=== PATIENT | female | born 1955 | race Caucasian/White ===

== ENCOUNTER → 2017-05-17 | Outpatient (CLI) | payer BC ==
[~2017-05-17] MED LIST: ATEN-173 PO; CETITAB27 PO; NXM/40 PO; SIMV40TA2 PO
== END | disposition home or self-care (01) ==
LOC: C.LABSPEC 10:31
PROVIDERS: ATTEND Nurse Practitioner Family
DX: N39.41 Urge incontinence (principal); R39.9 Unspecified symptoms and signs involving the genitourinary system

== ENCOUNTER → 2017-07-10 | Outpatient (CLI) | payer BC ==
--- NOTE | 2017-07-11 13:40 | MAMMOGRAPHY REPORT ---
BILATERAL DIGITAL SCREENING MAMMOGRAM TOMOSYNTHESIS WITH CAD: 07/10/2017 CLINICAL HISTORY: Routine screening. TECHNIQUE: Breast tomosynthesis in addition to standard 2D mammography was performed. Current study was also evaluated with a Computer Aided Detection (CAD) system. COMPARISON: Comparison is made to exams dated: 05/18/2016 mammogram, 05/06/2015 mammogram, 03/02/2014 laura mogram, 02/25/2014 mammogram, 02/19/2013 mammogram, and 02/16/2012 mammogram - [facility]. BREAST COMPOSITION: There are scattered areas of fibroglandular density in both breasts. FINDINGS: There is a 5 mm focal asymmetry in the 6:00 posterior right breast for which additional sp ot compression tomosynthesis views and possible ultrasound are recommended. No other suspicious mass, architectural distortion or cluster of microcalcifications is seen bilatera lly. IMPRESSION: ACR BI-RADS CATEGORY 0: INCOMPLETE EVALUATION: NEED ADDITIONAL IMAGING EVALUATION The 5 mm focal asymmetry in the 6:00 right breast needs additional evaluation. The patient will be called to schedule an appointment. Approximately 10% of breast cancers are not detected with mammography. A negative mammographic report should not delay biopsy if a clinically suggestive mass is present. Gretta Kumar M.D. ay/:07/10/2017 17:20:06 Auto Painter Helper: Karlene CISNEROS(Gilles)(M), [facility] letter sent: Addl Imaging 0 BI-RADS Code: ACR BI-RADS Category 0: Incomplete Evaluation: Need Additional Imaging Evaluation
== END | disposition home or self-care (01) ==
LOC: C.MAMM 15:20
PROVIDERS: ATTEND Family Medicine
DX: Z12.31 Encounter for screening mammogram for malignant neoplasm of breast (principal); N64.89 Other specified disorders of breast

== ENCOUNTER → 2017-07-20 | Outpatient (CLI) | payer BC ==
--- NOTE | 2017-07-20 13:43 | MAMMOGRAPHY REPORT ---
UNILATERAL RIGHT DIGITAL DIAGNOSTIC MAMMOGRAM TOMOSYNTHESIS AND TARGETED RIGHT ULTRASOUND: 07/20/2017 CLINICAL HISTORY: Callback from screening mammogram for right breast asymmetry. TECHNIQUE: Breast tomosynthesis in addition to standard 2D mammography was performed. Spot compress ion right CC and MLO 2-D and tomosynthesis images were obtained. COMPARISON: Comparison is made to exams dated: 07/10/2017 mammogram, 05/18/2016 mammogram, 05/06/2015 m ammogram, 03/02/2014 ultrasound, 03/02/2014 mammogram, and 02/19/2013 mammogram - [facility]ter. BREAST COMPOSITION: There are scattered areas of fibroglandular density in the right breast. FINDINGS: The previously described focal asymmetry in the right central breast effaces to a baseline appearance on the additional spot compression views, and appears similar to prior exams including the 2013 exam as well as the 2010 exam. No discrete mass or architectural distortion is noted in this r egion on the additional spot compression views. Targeted ultrasound was performed of the right central breast in the region of the mammographic asymm etry. No suspicious masses or other suspicious sonographic abnormalities are evident. There is mild benign duct ectasia as well as an incidental oval anechoic benign simple cyst measuring 3 x 3 mm. IMPRESSION: ACR BI-RADS CATEGORY 2: BENIGN, TARGETED ULTRASOUND ACR BI-RADS CATEGORY 2: BENIGN The right breast asymmetry effaces to a baseline appearance on the additional views, without correspo nding suspicious sonographic abnormality evident. Findings are benign given long-term stability and felt to represent normal fibroglandular tissue. There is no mammographic or targeted sonographic delonte dence of malignancy. A 1 year screening mammogram is recommended. The patient has been verbally notified of the results. Approximately 10% of breast cancers are not detected with mammography. A negative mammographic report should not delay biopsy if a clinically suggestive mass is present. Linsey Perez M.D. /:07/20/2017 09:00:35 Stull Hewer: Smitha Barclay RT(R)(M), [facility] letter sent: Normal 1/2 BI-RADS Code: ACR BI-RADS Category 2: Benign Ultrasound BI-RADS: ACR BI-RADS Category 2: Benign
== END | disposition home or self-care (01) ==
LOC: C.MAMM 08:35
PROVIDERS: ATTEND Family Medicine
DX: N64.89 Other specified disorders of breast (principal)

== ENCOUNTER → 2018-04-30 | Outpatient (CLI) | payer BC, OTHER ==
[~2018-04-30] MED LIST changes: +AMLO10TA3 PO; +LOSA1TAB38 PO; +METF-384 PO; +MONT1TAB3 PO; +PARO30TA PO; +PARO40TA3 PO; +RANI150T85 PO
--- NOTE | 2018-04-30 14:08 | DIAGNOSTIC IMAGING REPORT ---
RIGHT KNEE 4 VIEWS INCLUDING BILATERAL STANDING AP VIEWS CLINICAL HISTORY: RIGHT KNEE PAIN COMPARISON: None DISCUSSION: AP standing views reveal mild bilateral medial joint compartment narrowing. Submental views the right knee reveal no acute fractures. There are mild osteoarthritic changes. There are no erosive or destructive changes. IMPRESSION: 1. Mild osteoarthritic change 2. No acute fractures 3. No erosive or destructive changes Electronically signed by: John Chaparro M.D. 04/30/2018 2:06 PM Dictated Date/Time: 04/30/2018 2:05 PM
== END | disposition home or self-care (01) ==
LOC: C.RDSM 13:39
PROVIDERS: ATTEND Family Medicine
DX: M25.561 Pain in right knee (principal)

== ENCOUNTER 2018-05-05 12:15 | Emergency (ER) | payer OTHER ==
[~2018-05-05] VITALS: Ht 162.6 cm; Wt 90.5 kg
[~2018-05-05 12:15] MED LIST changes: -AMLO10TA3 PO; -LOSA1TAB38 PO; -METF-384 PO; -MONT1TAB3 PO; -PARO30TA PO; -PARO40TA3 PO; -RANI150T85 PO
[2018-05-05 12:17] VITALS: TEMP 36.6; Ht 162.6 cm; Wt 90.5 kg
[2018-05-05] MEDS ORDERED: LOSA1TAB38 PO (12:35)
[2018-05-05] MEDS ORDERED: METF-384 PO (12:35)
[2018-05-05] MEDS ORDERED: AMLO10TA3 PO (12:35)
[2018-05-05] MEDS ORDERED: PARO40TA3 PO (12:36)
[2018-05-05] MEDS ORDERED: RANI150T85 PO (12:36)
[2018-05-05] MEDS ORDERED: MONT1TAB3 PO (12:36)
[2018-05-05] MEDS ORDERED: PARO30TA PO (12:36)
--- NOTE | 2018-05-05 13:41 | EMERGENCY ROOM VISIT NOTE ---
History First contact with patient: 13:03 Chief Complaint: EYE ASSESSMENT Stated Complaint: EYE PROBLEMS - FLOATERS AND FLASHES OF LIGHT History of Present Illness The patient is a 62 year old female who presents to the Emergency Room with complaints of floaters in her vision which began yesterday. The patient states that she woke up yesterday morning with a floater across the vision of her left eye. She states that it appears like a squiggly, amoeba-like shape. She reports that the floater moves across her vision, especially with movements of her eyes. She does note she has some flashes in the peripheral vision of her left eye this morning, but does not have these anymore. Her overall vision is not affected, but she does state that at times the fluid moves across her vision and makes it difficult for her to see. She reports that she has cataracts bilaterally and sees Dr. Hassan primarily. She denies any history of similar symptoms. She denies any recent head trauma. She denies any pain in the eye or headache. Review of Systems A complete 10 point review of systems was reviewed with the patient with pertinent positives and negatives as per history of present illness. All else were negative. Past Medical/Surgical History Medical Problems: (1) Diabetes mellitus, type II (2) Hypertension Social History Smoking Status: Former Smoker Housing Status: lives with family Current/Historical Medications Scheduled Amlodipine (Norvasc), 10 MG PO DAILY Losartan Potassium (Cozaar), 100 MG PO DAILY Metformin Hcl (Glucophage), 1,500 MG PO BID Montelukast Sodium (Singulair), 10 MG PO DAILY Paroxetine Hcl (Paxil), 30 MG PO DAILY Paroxetine Hcl (Paxil), 40 MG PO DAILY Ranitidine (Zantac), 150 MG PO DAILY Physical Exam Vital Signs Date Time Temp Pulse Resp B/P (MAP) Pulse Ox O2 Delivery O2 Flow Rate FiO2 05/05/18 12:17 36.6 71 17 162/73 98 Room Air Right Eye Acuity: 20/50 Left Eye Acuity: 20/40 Physical Exam VITALS: Vitals are noted on the nurse's note and reviewed by myself. Vital signs stable. GENERAL: This is a 62-year-old female, in no acute distress, nondiaphoretic, well-developed well-nourished. SKIN: The skin was without rashes. HEAD: Normocephalic atraumatic. EYES: Visual acuity as above. Pupils equal round and reactive to light and accommodation. Extraocular movements intact. Peripheral vision intact and equal bilaterally. Funduscopic exam reveals no papilledema or hemorrhage. Slit -lamp examination reveals no foreign bodies. Anterior chamber normal. NEURO: Patient was alert and oriented to person place and time. Medical Decision & Procedures Medical Decision Differential diagnosis includes retinal detachment, vitreous detachment, vitreous hemorrhage, retinal tear, among others. The patient was evaluated as above. Eye exam is within normal limits. I did speak with Dr. Johnson, the on-call director broadcast who did not feel this represented a retinal detachment and feels the patient can follow-up for a dilated exam in the morning with her own director broadcast. She was advised to contact Dr. Hassan first thing in the morning to schedule an appointment. She was advised to return with worsening of her symptoms. She verbalized understanding of my assessment and treatment plan and was discharged home in good condition. Medication Reconcilliation Current Medication List: was personally reviewed by me Blood Pressure Screening Patient's blood pressure: Elevated blood pressure Blood pressure disposition: Referred to PCP Impression Primary Impression: Floaters in visual field Departure Information Dispostion Home / Self-Care Condition GOOD Referrals Abby Winslow M.D. (PCP) Ranjith Hassan M.D. Patient Instructions My [facility] Additional Instructions Contact Dr. Hassan in the morning to schedule follow-up tomorrow. Return to the emergency department if you develop a "rainstorm" of floaters, "lightning storm" of flashes, changes in the periphery of your vision or any other concerning symptoms. Do not make any significant sudden head movements until you follow-up with ophthalmology. Problem Qualifiers Primary Impression: Floaters in visual field Laterality: left Qualified Codes: H43.392 - Other vitreous opacities, left eye
[2018-05-05 13:51] VITALS: BP 146/73; PULSE 58; O2SAT 94
== END 2018-05-05 13:55 | disposition home or self-care (01) ==
LOC: C.EDB 12:16 → C.EDD 13:55
DX: H43.392 Other vitreous opacities, left eye (principal); H26.9 Unspecified cataract; E11.9 Type 2 diabetes mellitus without complications; I10 Essential (primary) hypertension; Z87.891 Personal history of nicotine dependence; Z79.899 Other long term (current) drug therapy; Z79.84 Long term (current) use of oral hypoglycemic drugs

== ENCOUNTER 2018-10-14 07:45 | Observation (INO) ==
--- NOTE | 2018-09-17 10:00 | Anesthesiology Consultation ---
Date of Service September 17, 2018 Assessment & Plan (1) Encounter for pre-operative examination: Plan: - Check BSG AM DOS Chart Review Chart Review: Acceptable Risk for Surgery and Patient seen in Pre Admission Testing Teaching & Discussion Pre-Anesthesia Teaching/Discussion Notes: Instructed NPO after midnight before surgery,except medications with 15 cc of water. Medication instructions provided according to the PAT guidelines. History Surgery Operation Date: 10/14/18 07:00 Proposed Procedures p Right Breast Partial Mastectomy with Needle Localization and with Right [place] Lymph Node Biopsy (Injection Only) - Roly Correa MD, FACS Height/Weight Height: 5 ft 4 in Weight: 85.7 kg Allergies Allergy/AdvReac Type Severity Reaction Status Date / Time QUIBRON Allergy Unknown heart Uncoded 09/10/18 08:42 racing, tongue fuzzy, couldn't speak Medications Home Medications Medication Instructions Recorded Confirmed Last Taken albuterol sulfate 2 puff INHALATION Q6H PRN 09/10/18 09/10/18 Unknown amlodipine 10 mg PO QAM 09/10/18 09/10/18 Unknown atorvastatin [Lipitor] 20 mg PO PM 09/10/18 09/10/18 Unknown cholecalciferol (vitamin D3) 2,000 unit PO QAM 09/10/18 09/10/18 Unknown [Vitamin D3] coenzyme Q10 [CoQ-10] 100 mg PO QPM 09/10/18 09/10/18 Unknown hydrochlorothiazide 12.5 mg PO QAM 09/10/18 09/10/18 Unknown losartan 100 mg PO QAM 09/10/18 09/10/18 Unknown metformin 1,000 mg PO BID 09/10/18 09/10/18 Unknown montelukast [Singulair] 10 mg PO PM 09/10/18 09/10/18 Unknown paroxetine HCl [Paxil] 20 mg PO QPM 09/10/18 09/10/18 Unknown ranitidine HCl [Zantac] 150 mg PO QAM 09/10/18 09/10/18 Unknown vitamin E 400 unit PO QAM 18 09/10/18 Unknown Past Medical History Medical History Asthma STABLE Depression Diabetes NIDDM GERD (gastroesophageal reflux disease) CONTROLLED Hiatal hernia High cholesterol Hypertension Obesity Urinary urgency Vitreous disorder LEFT EYE VITREOUS DETACHMENT- "FLOATERS" NOTED Past Surgical History Surgical History Hx of colonoscopy Hx of tubal ligation Past Anesthesia History No Hx of Anesthesia Complications and No Family Hx of Anesthesia Complications History of PONV No Motion Sickness Screening History of Motion Sickness: No Social History Smoking Status: Never smoker Do You Dip or Chew Tobacco: No Hx Alcohol Use: Yes Alcohol type: wine alcohol intake frequency: a few times a month Hx Substance Use: No Exercise / Class Metabolic Activity II 4-5 Yardwork/Stairs/Walk up hill Review of Systems Reflux controlled. Asthma stable. Patient reports knee pain. URI symptoms significantly improved. Patient denies chest pain, shortness of breath, palpitations. Physical Exam Vital Signs VITALS BP 122/74 P 56 TEMP 98.0 SP02 98%RA RESP 20 Full neck and c-spine range of motion. Full TMJ range of motion. TMD 3 finger breaths Mallampati Score 2 Dentition: upper partial; missing molars, two crowns on left upper side, upper front right permanent bridge Lungs: clear throughout to auscultation Cardiac: regular rate and rhythm, no murmurs noted Spine: normal Carotid arteries: negative bruit Extremities: no edema Testing Electrocardiogram Date: 09/17/18 Findings: + SB @ (59) Laboratory Results 09/17/18 10:10 09/17/18 10:10
--- NOTE | 2018-09-17 10:08 | PAT Medication Instructions ---
Medication Instructions Date of Service September 17, 2018 Home Medications albuterol sulfate 2 puff INHALATION Q6H PRN amlodipine 10 mg PO QAM atorvastatin [Lipitor] 20 mg PO PM cholecalciferol (vitamin D3) 2,000 unit PO QAM hydrochlorothiazide 12.5 mg PO QAM losartan 100 mg PO QAM metforminm 1,000 mg PO BID montelukast [Singulair] 10 mg PO PM paroxetine HCl [Paxil] 20 mg PO QPM ranitidine HCl [Zantac] 150 mg PO QAM vitamin E 400 unit PO QAM coenzyme Q10 [CoQ-10] 100 mg PO QPM STOP taking 2 weeks before surgery vitamin E 400 unit PO QAM coenzyme Q10 [CoQ-10] 100 mg PO QPM DO NOT take the morning of surgery cholecalciferol (vitamin D3) 2,000 unit PO QAM hydrochlorothiazide 12.5 mg PO QAM losartan 100 mg PO QAM metformin 1,000 mg PO BID Take morning of surgery With a small sip of water, OTHERWISE NOTHING TO EAT OR DRINK AFTER MIDNIGHT: albuterol sulfate 2 puff INHALATION Q6H PRN (use if needed; please bring with you to hospital day of surgery if possible) amlodipine 10 mg PO QAM ranitidine HCl [Zantac] 150 mg PO QAM Take evening before surgery albuterol sulfate 2 puff INHALATION Q6H PRN (if needed) atorvastatin [Lipitor] 20 mg PO PM metformin 1,000 mg PO BID montelukast [Singulair] 10 mg PO PM paroxetine HCl [Paxil] 20 mg PO QPM Other Notes If you have any questions please call us at [phone] or [phone] or [phone] or [phone]
[2018-09-17 10:56] LABS: Basophils # (auto) 0.05 K/uL (0-0.2); Basophils % (auto) 0.6 %; Eosinophils # (auto) 0.23 K/uL (0-0.5); Eosinophils % (auto) 2.6 %; Hematocrit (blood only) 38.2 % (37-47); Hemoglobin 12.3 g/dL (12.0-16.0); Immature Granulocytes # (auto) 0.03 K/uL (0.00-0.02); Immature Granulocytes % (auto) 0.3 %; Lymphocytes # (auto) 2.73 K/uL (1.2-3.4); Lymphocytes % (auto) 31.3 %; Mean Corpuscular Hgb Conc 32.2 g/dL (32-36); Mean Corpuscular Volume 81.4 fL (80-100); Monocytes # (auto) 0.51 K/uL (0.11-0.59); Monocytes % (auto) 5.9 %; Neutrophils # (auto) 5.16 K/uL (1.4-6.5); Neutrophils % (auto) 59.3 %; Platelet Count 368 K/uL (130-400); RDW Coefficient of Variation 14.5 % (11.5-14.5); RDW Standard Deviation 42.8 fL (36.4-46.3); Red Blood Count 4.69 M/uL (4.2-5.4); White Blood Count 8.71 K/uL (4.8-10.8)
[2018-09-17 11:05] LABS: BUN Creatinine Ratio 16.4 (10-20); Creatinine Clr Calc Pharmacy 72.5 ml/min; Est GFR (Non-African American) 75.1; Potassium 3.5 mmol/L (3.5-5.1)
[~2018-10-14 07:45] MED LIST changes: -ATEN-173 PO; +CEFAZOLIN 2000MG 2,000 MG/15 ML SYR IV SCH; -CETITAB27 PO; +LR 15ML/HR IV SCH; -NXM/40 PO; -SIMV40TA2 PO
--- NOTE | 2018-10-14 09:48 | Nuclear Medicine Report ---
NM sentinel node inject only CLINICAL HISTORY: 63 years-old Female presenting with breast cancer, RIGHT BREAST CA. COMPARISON: Needle localization mammographic images performed earlier today. PROCEDURE: Using standard aseptic technique, 5 intradermal injections of 0.491 mCi of Lymphoseek were administer ed in the right breast in the periareolar region. The patient tolerated the procedure well. There were no immediate complications. The patient was subsequently transported to the surgical suite. No imaging was obtained at the referr ing physician's request. IMPRESSION: Injection of 0.491 mCi of Lymphoseek in the right breast. Electronically signed by: Fredrick Chapman M.D. 10/14/2018 9:46 AM
[2018-10-14] MEDS ORDERED: MIDAZOLAM HCL 1 MG/ML 2ML VIAL ONE (10:31)
[2018-10-14] MEDS ORDERED: fentaNYL citrate 100 MCG/2 ML VIAL ONE ×2 (10:31→11:45)
[2018-10-14] MEDS ORDERED: KETOROLAC 30 MG/ML VIAL IV PRN (10:43)
[2018-10-14] MEDS ORDERED: HYDROmorphone INJ 2 MG/ML SYR/VIAL IV PRN (10:43)
[2018-10-14] MEDS ORDERED: ePHEDrine sulfate 50 MG/ML AMP IV PRN ×2 (10:43→13:29)
[2018-10-14] MEDS ORDERED: ATROPINE SULFATE 0.1 MG/ML 10ML SYR IV PRN ×2 (10:43→13:29)
[2018-10-14] MEDS ORDERED: DEXAMETHASONE SOD INJ 4 MG/ML VIAL IV PRN (10:43)
[2018-10-14] MEDS ORDERED: ONDANSETRON INJ 2 MG/ML 2 ML VIAL IV PRN ×2 (10:43→14:07)
[2018-10-14] MEDS ORDERED: BUPIVACAINE 0.5 % 5 MG/1 ML MPF 30ML VIAL ONE (10:58)
[2018-10-14] MEDS ORDERED: ISOSULFAN BLUE 10 MG/ML VIAL 5 ML ONE (10:58)
[2018-10-14] MEDS ORDERED: METHYLENE BLUE 0.5% 10 ML VIAL ONE (10:59)
[2018-10-14] MEDS ORDERED: PROPOFOL IV EMULSION 10 MG/ML 20 ML VIAL IV ONE (11:46)
[2018-10-14] MEDS ORDERED: ONDANSETRON INJ 2 MG/ML 2 ML VIAL ONE (11:46)
[2018-10-14] MEDS ORDERED: DEXAMETHASONE SOD INJ 4 MG/ML VIAL ONE (11:46)
[2018-10-14] MEDS ORDERED: LIDOCAINE HCL 2% 2 ML VIAL/AMP(20MG/ML) INFIL ONE (11:46)
--- NOTE | 2018-10-14 12:24 | Operative Report ---
Post Operative Report Pre & Post Diagnosis Operation Date: 10/14/18 11:20 Pre-Op Diagnosis: Right Breast Cancer Post-Op Diagnosis: Right Breast Cancer Procedure Operation Date: 10/14/18 11:20 Actual Procedures p Right Breast Partial Mastectomy with Needle Localization, and with Right [place] Lymph Node Biopsy (Injection Only)(Right) - Roly Correa MD, FACS Surgeon Roly Correa MD, FACS Social Services Noemy Nino Estimated Blood Loss 10 Findings Consistent with Post-Op Diagnosis Specimens Rt breast tissue and LNs Description of Procedure see dictation I attest to the content of the Intraoperative Record and any orders documented therein. Any exceptions are noted below.
[2018-10-14] MEDS ORDERED: ACETAMINOPHEN 1,000 MG/100 ML VIAL IV ONE (12:25)
[2018-10-14] MEDS ORDERED: ACETAMINOPHEN 1000 MG/100 ML IV IV ONE (12:38)
--- NOTE | 2018-10-14 12:50 | Operative Report ---
DATE OF OPERATION: 10/14/2018 NAME OF OPERATION: Needle localization, right lumpectomy with sentinel lymph node biopsy. PREOPERATIVE DIAGNOSIS: Right breast cancer. POSTOPERATIVE DIAGNOSIS: Right breast cancer. STAFF SURGEON: Roly Correa MD [employer] GRAVEL ROOFER: Panfilo Nino PA-C ANESTHESIA: General. DESCRIPTION OF PROCEDURE: The patient was brought in the operating room and placed on the operating table in supine position. Right breast and axilla were prepped and draped in usual fashion. Using the Neoprobe, an incision was made in the right axilla using 0.5% plain Marcaine to anesthetize the skin. Dissection carried down deeply, identifying 2 nodes. The one had significant activity. It was sent for frozen section and found to be negative. The other node was sent permanent. During the frozen section, lumpectomy was performed. The needle was inferior in the right breast. Incision was made around the needle carrying dissection down into the tissue which was retroareolar and superior to the entry of the needle. The tissue was taken out. The needle was inferior, long silk lateral, short silk medial and methylene blue with deep superior margin. Additional superior/deep tissue was taken. This was in the retroareolar area. It was then marked with long silk suture lateral, short medial and methylene blue new margin. Additional inferior/deep tissue was taken, again labeled long silk suture lateral, short silk suture medial and methylene blue new margin. At this point, both incisions were closed, deep tissue reapproximated using 2-0 plain suture, then the skin reapproximated in the axilla using 4-0 nylon suture and the breast using subcuticular 4-0 Monocryl with Steri-Strips. Dressing applied and the patient transferred to the recovery room in stable condition. I attest to the content of the Intraoperative Record and any orders documented therein. Any exception s are noted below.
[2018-10-14] MEDS: fentaNYL citrate 100 MCG/2 ML VIAL IV PRN ×2 (12:55→13:00)
[2018-10-14] MEDS ORDERED: fentaNYL citrate 100 MCG/2 ML VIAL IV PRN (13:29)
--- NOTE | 2018-10-14 13:30 | Anesthesiology Progress Note ---
Date of Service October 14, 2018 Anesthesia Post Procedure Vital Signs Vital Signs: Temp Pulse Pulse Resp BP Pulse Ox 10/14/18 13:20 36.8 C 79 16 154/68 H 94 10/14/18 13:10 78 23 153/76 H 94 10/14/18 13:00 77 14 158/79 H 95 10/14/18 12:50 75 19 157/80 H 97 10/14/18 12:40 82 22 170/81 H 97 10/14/18 12:32 36.8 C 79 19 155/87 H 92 10/14/18 09:10 37 C 68 16 169/87 H 94 Pain Intensity Lower Back: Pain Intensity: 1 Right Hand: Pain Intensity: 2 Right Axilla: Pain Intensity: 2 Notes Mental Status: alert / awake / arousable and participated in evaluation Patient Amnestic to Procedure: Yes Nausea / Vomiting: adequately controlled Pain: adequately controlled Airway Patency, RR, SpO2: stable & adequate BP & HR: stable & adequate Hydration State: stable & adequate Anesthetic Complications: no major complications apparent
[2018-10-14] MEDS ORDERED: PROMETHAZINE HCL 12.5 MG in SODIUM CHLORIDE 0.9% 50 ML IV PRN (14:07)
[2018-10-14] MEDS ORDERED: ALBUTEROL HFA 8 GM INHALER INH PRN (14:07)
[2018-10-14] MEDS ORDERED: ACETAMINOPHEN 325 MG TAB PO PRN (14:07)
[2018-10-14] MEDS ORDERED: HYDROCODONE/ACETAMOPHEN 5/325MG TAB PO PRN (14:07)
[2018-10-14] MEDS ORDERED: MoRPHine SULFATE 2 MG/ML CARP IV PRN (14:07)
--- NOTE | 2018-10-14 15:56 | Mammography Report ---
NEEDLE LOCALIZATION RIGHT BREAST: 10/14/2018 CLINICAL HISTORY: 63-year-old woman with biopsy-proven carcinoma in the 6:00 right breast presents fo r preoperative needle wire localization prior to lumpectomy. COMPARISON: Comparison is made to exams dated: 08/09/2018 ultrasound biopsy, 07/25/2018 mammogram, ultrasound, 07/10/2017 mammogram, 07/25/2018 ultrasound, and 08/09/2018 mammogram - [facility]. PATIENT CONSENT: The risks of the procedure were explained to the patient and informed consent was ob tained. A timeout was performed and the right breast was confirmed as the site for preoperative loca lization. The patient denied eating or drinking anything this morning that would preclude anesthesia . She also denied allergy to lidocaine. PROCEDURE DESCRIPTION: Prior right breast imaging including screening mammogram dated 07/11/2018, ekaterina gnostic mammogram and ultrasound 07/25/2018, present guided core biopsy and post procedure mammograms 08/09/2018 were reviewed. The subtle hypoechoic shadowing mass in the 6:00 right breast, 4 cm from t he nipple and associated ribbon-shaped biopsy marker clip are the intended target for localization. With the patient in the supine position and right arm extended, repeat targeted ultrasound was perfor med in the 6:00 right breast. The subtle hypoechoic shadowing lesion and associated biopsy clip are again identified. The skin of the right breast was cleansed with Betadine and sterile drapes were pl aced. 1% buffered Lidocaine without epinephrine was administered as local anesthesia. A 5cm Can II needle and wire combination was inserted into the breast. Right CC and ML 2D and tomosynthesis im ages were performed to assess location of the wire and needle with regard to the biopsy clip. Norvelt l positioning was confirmed and the ribbon-shaped biopsy clip is at the heel of the robbie.The entire p rocedure including approach and needle length were discussed with the operating surgeon prior to surg eugenio. The patient tolerated the procedure well and there was no immediate complication. She was sent to the operating room in satisfactory condition. A specimen radiograph was obtained which demonstrates the localizing needle and wire, ribbon-shaped b iopsy marker clip within the tissue specimen, consistent with successful preoperative localization an d subsequent surgical excision. Final pathology is pending. IMPRESSION: NEEDLE LOCALIZATION Status post preoperative needle and wire localization for biopsy proven carcinoma in the 6:00 right b reast. The imaged specimen includes the intended abnormality. Gretta Kumar M.D. ay/:10/14/2018 12:13:40 Cash Surrender Calculator: Smitha Eli, [facility]
[2018-10-14] MEDS: HYDROCODONE/ACETAMOPHEN 5/325MG TAB PO PRN ×2 (16:12→21:23)
[2018-10-14] MEDS: SODIUM CHLORIDE 0.9% 1000ML 1,000 ML IV SCH (17:06)
[2018-10-14] MEDS: CEFAZOLIN 1000MG 1,000 MG/7.5 ML SYR IV SCH (17:07)
[2018-10-14] MEDS ORDERED: DEXTROSE 50% 50 ML SYRINGE IV PRN (17:38)
[2018-10-14] MEDS ORDERED: CARBOHYDRATES FOR HYPOGLYCEMIA PO PRN (17:38)
[2018-10-14] MEDS ORDERED: GLUCOSE 40% GEL 15 GM TUBE PO PRN (17:38)
[2018-10-14] MEDS ORDERED: GLUCOSE 10 TABS/TUBE PO PRN (17:38)
[2018-10-14] MEDS ORDERED: GLUCAGON FOR INJ 1 MG VIAL SQ PRN (17:38)
--- NOTE | 2018-10-14 19:23 | Consultation ---
Date of Consultation October 14, 2018 Assessment & Plan (1) Breast cancer: s/p R partial mastectomy As per Dr. Correa (2) Depression: continue home meds (3) Hyperlipidemia: continue home meds (4) Diabetes mellitus, type II: SSI PRN (5) Hypertension: continue home meds (6) DVT prophylaxis: As per Dr. Correa History of Present Illness Attending Physician: Roly Correa MD, [facility] History of Present Illness 63 y/o F who was admitted on 10/14 s/p R partial mastectomy with Dr. Correa. Pt is doing well post-op. Tolerating PO without issue. Pt denies fever, SOB, abd pain, n/v/c/d, LE swelling. She does have mild chest pain related to her surgery , but doing well otherwise Allergies Allergy/AdvReac Type Severity Reaction Status Date / Time QUIBRON Allergy Unknown heart Uncoded 10/14/18 09:42 racing, tongue fuzzy, couldn't speak Home Medications Home Medications Medication Instructions Recorded Confirmed Type albuterol sulfate 2 puff INHALATION Q6H PRN 09/10/18 10/14/18 History amlodipine 10 mg PO QAM 09/10/18 10/14/18 History atorvastatin [Lipitor] 20 mg PO PM 09/10/18 10/14/18 History cholecalciferol (vitamin D3) 2,000 unit PO QAM 09/10/18 10/14/18 History [Vitamin D3] coenzyme Q10 [CoQ-10] 100 mg PO QPM 09/10/18 10/14/18 History hydrochlorothiazide 12.5 mg PO QAM 09/10/18 10/14/18 History losartan 100 mg PO QAM 09/10/18 10/14/18 History metformin 1,000 mg PO BID 09/10/18 10/14/18 History montelukast [Singulair] 10 mg PO PM 09/10/18 10/14/18 History paroxetine HCl [Paxil] 20 mg PO QPM 09/10/18 10/14/18 History ranitidine HCl [Zantac] 150 mg PO QAM 09/10/18 10/14/18 History vitamin E 400 unit PO QAM 09/10/18 10/14/18 History Patient History Medical History Asthma STABLE Depression Diabetes NIDDM GERD (gastroesophageal reflux disease) CONTROLLED Hiatal hernia High cholesterol Hypertension Obesity Urinary urgency Vitreous disorder LEFT EYE VITREOUS DETACHMENT- "FLOATERS" NOTED Surgical History Hx of colonoscopy Hx of tubal ligation Social History Current Living Situation: Spouse Other Information That Helps Us Care for You: No Feels Safe at Home: Yes Safety Concerns: Feels Safe At This Time Smoking Status: Never smoker Do You Dip or Chew Tobacco: No Hx Alcohol Use: Yes Alcohol type: wine Alcohol Intake Frequency: a few times a month Hx Substance Use: No Beliefs That Will Affect Care: None Preferred Language: Nauruan Communication Ability: Effective Review of Systems Pertinent positives and negatives reviewed in HPI--all others negative Physical Exam 2 Vital Signs (Past 24 Hours): Last Vital Signs Temp 37.1 C 10/14/18 16:40 Pulse 79 10/14/18 16:40 Resp 19 10/14/18 16:40 BP 150/72 H 10/14/18 16:40 Pulse Ox 92 10/14/18 16:40 Constitutional: WD/WN, vitals as above Eyes: normal visual diamond by confrontation and + anicteric sclerae Neck: normal visual inspection and trachea midline Respiratory: normal respiratory effort, lungs clear to auscultation Cardiovascular: Rate/Rhythm: regular rate and regular rhythm Gastrointestinal (Abdomen): Inspection/Auscultation: abdomen not distended Percussion/Palpation: abdomen soft; abdomen nontender Musculoskeletal: Head/Neck/Chest: normocephalic and head atraumatic negative for edema, peripheral pulses intact Skin: no rashes, warm and dry Neurologic: awake; not confused Speech / Cognition: normal speech Psychiatric: A+Ox3, euthymic affect
[2018-10-14] MEDS ORDERED: PARoxetine HCl 20 MG TAB PO SCH (21:00)
[2018-10-14] MEDS ORDERED: MONTELUKAST SODIUM 10 MG TABLET PO SCH (21:00)
[2018-10-14] MEDS ORDERED: ATORVASTATIN 20 MG TAB PO SCH (21:00)
[2018-10-14] MEDS: INSULIN ASPART 100 UNITS/ML 3 ML PEN SC SCH (21:16)
[2018-10-15] MEDS: CEFAZOLIN 1000MG 1,000 MG/7.5 ML SYR IV SCH ×2 (02:01→09:29)
[2018-10-15 07:53] VITALS: BP 128/67; PULSE 58; TEMP 97.7; O2SAT 94
--- NOTE | 2018-10-15 08:05 | Discharge Summary ---
DATE OF DISCHARGE: 10/15/2018 PRINCIPAL DIAGNOSIS: Right breast cancer. PROCEDURES: The patient underwent needle localization, right breast lumpectomy with sentinel lymph node biopsy. HISTORY OF PRESENT ILLNESS: The patient is a 63-year-old female with biopsy proven invasive carcinoma of the right breast. HOSPITAL COURSE: The patient was brought into the hospital on 10/14/2018. She had undergone needle localization and then she underwent injection of the breast for sentinel node biopsy. She was taken to the operating room where she underwent a right sentinel node biopsy with right lumpectomy. [place] node was negative. The patient is felt stable for discharge home today to be followed in the surgical clinic within 1 week.
[2018-10-15 08:42] LABS: Estimated Average Glucose 157 mg/dl
--- NOTE | 2018-10-15 08:49 | Anesthesiology Progress Note ---
Date of Service October 15, 2018 Anesthesia Post Procedure Vital Signs Vital Signs: Temp Pulse Pulse Pulse Resp BP Pulse Ox 10/15/18 07:32 36.5 C 58 L 16 128/67 94 10/15/18 04:21 36.6 C 60 16 138/82 97 10/14/18 23:07 37 C 60 18 100/66 96 10/14/18 16:40 37.1 C 79 19 150/72 H 92 10/14/18 15:38 37.1 C 69 18 129/64 94 10/14/18 15:21 37.4 C 78 18 155/75 H 94 10/14/18 14:37 37 C 64 16 148/75 H 90 10/14/18 14:07 74 16 151/73 H 94 10/14/18 13:20 36.8 C 79 16 154/68 H 94 10/14/18 13:10 78 23 153/76 H 94 10/14/18 13:00 77 14 158/79 H 95 10/14/18 12:50 75 19 157/80 H 97 10/14/18 12:40 82 22 170/81 H 97 10/14/18 12:32 36.8 C 79 19 155/87 H 92 10/14/18 09:10 37 C 68 16 169/87 H 94 Pain Intensity Lower Back: Pain Intensity: 1 Right Hand: Pain Intensity: 2 Right Axilla: Pain Intensity: 2 Right Breast: Pain Intensity: 3 Notes Mental Status: alert / awake / arousable Patient Amnestic to Procedure: Yes Nausea / Vomiting: adequately controlled Pain: adequately controlled Airway Patency, RR, SpO2: stable & adequate BP & HR: stable & adequate Hydration State: stable & adequate Anesthetic Complications: no major complications apparent
[2018-10-15] MEDS ORDERED: LOSARTAN POTASSIUM 50 MG TAB PO SCH (09:00)
[2018-10-15] MEDS ORDERED: hydroCHLOROthiazide 25 MG TAB PO SCH (09:00)
[2018-10-15] MEDS ORDERED: AMLODIPINE BESYLATE 5 MG TAB PO SCH (09:00)
[2018-10-15] MEDS: INSULIN ASPART 100 UNITS/ML 3 ML PEN SC SCH (09:30)
[2018-10-15] MEDS: HYDROCODONE/ACETAMOPHEN 5/325MG TAB PO PRN (09:37)
[2018-10-15] MEDS: SODIUM CHLORIDE 0.9% 1000ML 1,000 ML IV SCH (09:42)
[2018-10-16] MEDS ORDERED: IBUPROFEN 600 MG TAB PO PRN (06:38)
--- NOTE | 2018-10-16 07:19 | Operative Report ---
DATE OF OPERATION: 10/14/2018 ADDENDUM NAME OF OPERATION: Needle localization, right lumpectomy with sentinel lymph node biopsy. My assistant athletic trainer, Alvaro Nino helped with prepping, draping, excision of the lymph nodes and breast tissue and closure of the wounds. I attest to the content of the Intraoperative Record and any orders documented therein. Any exception s are noted below.
[2018-10-16] MEDS ORDERED: cephALEXin 500 MG CAP PO SCH (09:00)
== END 2018-10-15 11:30 | disposition home health service (06) ==
LOC: 3W 07:45 → ASU 07:45

== ENCOUNTER 2022-10-19 05:25 | Observation (INO) ==
--- NOTE | 2022-09-27 15:52 | PAT Medication Instructions ---
Medication Instructions Date of Service September 27, 2022 Home Medications albuterol sulfate 90 mcg/actuation aerosol inhaler 2 puff inhalation Q6H PRN Wheezing amlodipine 10 mg tablet 10 mg PO QAM atorvastatin 20 mg tablet (Lipitor) 20 mg PO PM coenzyme Q10 100 mg capsule (CoQ-10) 100 mg PO QPM hydrochlorothiazide 12.5 mg capsule 12.5 mg PO QAM losartan 100 mg tablet 100 mg PO QAM montelukast 10 mg tablet (Singulair) 10 mg PO QPM paroxetine HCl 20 mg tablet (Paxil) 30 mg PO QPM letrozole 2.5 mg tablet 2.5 mg PO QPM metformin 1,000 mg tablet 1,000 mg PO BID vitamin E 268 mg (400 unit) capsule 400 unit PO QAM famotidine 20 mg tablet (Pepcid AC) 20 mg PO BID calcium carbonate 600 mg-vitamin D3 20 mcg (800 unit) tablet (Caltrate with Vitamin D3) 1 tab PO QAM fluticasone propionate 50 mcg/actuation nasal spray,suspension (Flonase Allergy Relief) 1 spray intranasal QAM glucosam 750 mg-chondroi 100 mg-hyalur 1.65 mg-CF borate 108 mg tablet ([facility]) 1 tab PO QAM omeprazole 20 mg tablet,delayed release 20 mg PO QAM vitamin B complex 1 cap PO QAM ASK your prescriber and surgeon letrozole 2.5 mg tablet 2.5 mg PO QPM STOP taking 2 weeks before surgery (or as soon as possible if surgery is within 2 weeks) coenzyme Q10 100 mg capsule (CoQ-10) 100 mg PO QPM vitamin E 268 mg (400 unit) capsule 400 unit PO QAM glucosam 750 mg-chondroi 100 mg-hyalur 1.65 mg-CF borate 108 mg tablet ([employer] [facility]) 1 tab PO QAM DO NOT take the morning of surgery hydrochlorothiazide 12.5 mg capsule 12.5 mg PO QAM losartan 100 mg tablet 100 mg PO QAM metformin 1,000 mg tablet 1,000 mg PO BID calcium carbonate 600 mg-vitamin D3 20 mcg (800 unit) tablet (Caltrate with Vitamin D3) 1 tab PO QAM vitamin B complex 1 cap PO QAM Take morning of surgery With a small sip of water, OTHERWISE NOTHING TO EAT OR DRINK AFTER MIDNIGHT: albuterol sulfate 90 mcg/actuation aerosol inhaler 2 puff inhalation Q6H PRN Wheezing (use if needed; please bring rescue inhaler with you to hospital day of surgery if possible) amlodipine 10 mg tablet 10 mg PO QAM famotidine 20 mg tablet (Pepcid AC) 20 mg PO BID fluticasone propionate 50 mcg/actuation nasal spray,suspension (Flonase Allergy Relief) 1 spray intranasal QAM omeprazole 20 mg tablet,delayed release 20 mg PO QAM Take evening before surgery albuterol sulfate 90 mcg/actuation aerosol inhaler 2 puff inhalation Q6H PRN Wheezing (if needed) atorvastatin 20 mg tablet (Lipitor) 20 mg PO PM montelukast 10 mg tablet (Singulair) 10 mg PO QPM paroxetine HCl 20 mg tablet (Paxil) 30 mg PO QPM metformin 1,000 mg tablet 1,000 mg PO BID famotidine 20 mg tablet (Pepcid AC) 20 mg PO BID Other Notes If you have any questions please call us at [phone] or [phone] or [phone] or [phone]
--- NOTE | 2022-10-04 14:02 | Anesthesiology Consultation ---
Date of Service October 04, 2022 Assessment & Plan (1) Encounter for pre-operative examination: - COVID screening: Per assessment on 10/04: No known COVID-19 positive contacts (did have Covid positive contact > 10 days prior. Pt remained asymptomatic following contact. She states she will contact PAT if development of any symptoms). No current COVID-19 related symptoms. Travel screen negative. Patient vaccinated. At surgeon discretion if preop Covid testing being done. - Chlorhexidine allergy: Per pt, history of rash with chlorhexidine in the past. Not given wipes at PAT visit due to previous reaction. - Check BSG AM DOS - Outpatient joint assessment: Pt currently scheduled for inpatient pathway. If surgeon requests review for outpatient joint pathway, patient is acceptable candidate for outpatient joint program from anesthesia standpoint pending surgeon's office assessment of pt motivation/strong home support/completion of same day joint program preop requirements. Chart Review Chart Review: Acceptable Risk for Surgery and Patient seen in Pre Admission Testing Teaching & Discussion Pre-Anesthesia Teaching/Discussion Notes: Instructed NPO after midnight before surgery,except medications with 15 cc of water. Medication instructions provid ed according to the PAT guidelines. History Surgery Operation Date: 10/19/22 07:00 Proposed Procedures p Right Total Knee Arthroplasty - Fredrick Rubio MD Height/Weight Height: 5 ft 4 in Weight: 86.7 kg Allergies Allergy/AdvReac Type Severity Reaction Status Date / Time guaifenesin [From Quibron] Allergy Mild heart Verified 09/26/22 12:54 racing, tongue fuzzy, couldn't speak theophylline [From Quibron] Allergy Mild heart Verified 09/26/22 12:54 racing, tongue fuzzy, couldn't speak chlorhexidine AdvReac Mild Rash Verified 09/26/22 12:54 Medications Home Medications Medication Instructions Recorded Confirmed Last Taken albuterol sulfate 90 mcg/actuation 2 puff inhalation Q6H PRN Wheezing 09/10/18 09/26/22 04/07/19 06:00 aerosol inhaler amlodipine 10 mg tablet 10 mg PO QAM 09/10/18 09/26/22 11/11/19 06:00 atorvastatin 20 mg tablet (Lipitor) 20 mg PO PM 09/10/18 09/26/22 04/03/19 coenzyme Q10 100 mg capsule 100 mg PO QPM 09/10/18 09/26/22 04/05/19 (CoQ-10) hydrochlorothiazide 12.5 mg capsule 12.5 mg PO QAM 09/10/18 09/26/22 04/06/19 losartan 100 mg tablet 100 mg PO QAM 09/10/18 09/26/22 11/11/19 06:00 montelukast 10 mg tablet 10 mg PO QPM 09/10/18 09/26/22 04/06/19 (Singulair) paroxetine HCl 20 mg tablet (Paxil) 30 mg PO QPM 09/10/18 09/26/22 04/06/19 letrozole 2.5 mg tablet 2.5 mg PO QPM 02/11/19 09/26/22 04/06/19 metformin 1,000 mg tablet 1,000 mg PO BID 02/11/19 09/26/22 04/06/19 vitamin E 268 mg (400 unit) capsule 400 unit PO QAM 08/21/19 09/26/22 Unknown famotidine 20 mg tablet (Pepcid AC) 20 mg PO BID 05/11/21 09/26/22 Unknown calcium carbonate 600 mg-vitamin 1 tab PO QAM 12/28/21 09/26/22 Unknown D3 20 mcg (800 unit) tablet (Caltrate with Vitamin D3) fluticasone propionate 50 1 spray intranasal QAM 12/28/21 09/26/22 Unknown mcg/actuation nasal spray,suspension (Flonase Allergy Relief) glucosam 750 mg-chondroi 100 1 tab PO QAM 12/28/21 09/26/22 Unknown mg-hyalur 1.65 mg-CF borate 108 mg tablet ([facility]) vitamin B complex 1 cap PO QAM 09/26/22 09/26/22 Unknown Past Medical History Medical History Asthma Stable Depression Diabetes NIDDM Fatty liver GERD (gastroesophageal reflux disease) Controlled Hiatal hernia High cholesterol History of cardiac murmur as a child "resolved" HX: breast cancer Right. Dx 2018. s/p surgery/xrt RUE limb restriction Hypertension Obesity Osteoarthritis Urinary urgency Vitreous disorder Left eye vitreous detachment, + floaters Exercise / Class Metabolic Activity III < 4 Walking/Shop/Light housework (Light housework (no CP, no SOB)) Past Family History Family History Mother , 74yo; Leukemia Hypertension Father , 62yo Myocardial infarction Hypertension Heart disease Daughter Diabetes 1.5, managed as type 1 Asthma Son Testicular cancer Daughter No problems noted. Brother No problems noted. Brother No problems noted. Sister No problems noted. Grandfather (Maternal) Colorectal cancer Aunt Ovarian cancer Paternal aunt Grandfather (Paternal) Asthma Other No family history of adverse response to anesthesia No family history of bleeding disorder Denies family history of Breast cancer Past Surgical History Surgical History History of cataract surgery R/L History of lumpectomy of right breast RIGHT 10/2017 Hx of breast biopsy Hx of colonoscopy Hx of repair of right rotator cuff POST FALL WITH FRACTURE (2018) Hx of tubal ligation Past Anesthesia History No Hx of Anesthesia Complications and No Family Hx of Anesthesia Complications History of PONV No Hx of PONV and No Hx of Motion Sickness Social History Smoking Status: Former smoker tobacco type: cigarettes Do You Dip or Chew Tobacco: No Smoking End Date: Quit (use x 1 years) Hx Alcohol Use: Yes Alcohol type: wine alcohol intake frequency: holidays/special occasions only Hx Substance Use: No substance use type: does not use Review of Systems + snoring. No witnessed apneic events. Patient denies chest pain, shortness of breath, fever, chills, cough, wheezing, palpitations. Physical Exam Vital Signs VITALS BP 126/73 P 70 TEMP 98.4 SP02 95%RA RESP 18 PHYSICAL Full cervical extension range of motion. Full TMJ range of motion. TMD 4 finger breaths Mallampati Score 2 (macroglossia) Dentition: upper partial, +caps/crowns (sides/molars) Lungs: clear throughout to auscultation Cardiac: regular rate and rhythm, no murmurs noted Spine: normal Carotid arteries: negative bruit Extremities: no edema Lab Results Anesthesia Preop Results Results Anesthesia Widget: WBC 9.55 K/ul (4.8-10.8) 09/05/22 Hgb 12.9 g/dl (12.0-16.0) 09/05/22 Hct 40.1 % (34.1-44.9) 09/05/22 Plt 323 K/uL (130-400) 09/05/22 Na 138 mmol/L (136-145) 10/04/22 K 3.3 mmol/L (3.5-5.1) L 10/04/22 Cl 101 mmol/L (98-107) 10/04/22 CO2 29 mmol/L (21-32) 10/04/22 BUN 21 mg/dl (6-23) 10/04/22 Creat 0.82 mg/dl (0.6-1.2) 10/04/22 Glucose Level 174 mg/dl (70-99(Fasting)) H 10/04/22 PT 10.5 Seconds (9.0-12.0) 10/04/22 PTT 26.5 Seconds (21.0-31.0) 10/04/22 INR 1.0 (0.9-1.1) 10/04/22 HA1c 7.1 % (4.5-5.6) H 10/04/22 Urine Color Dark Yellow 10/04/22 Urine Appearance Clear (Clear) 10/04/22 Urine pH 6.0 (4.5-7.5) 10/04/22 Urine Specific [place] 1.015 (1.000-1.030) 10/04/22 Urine Protein Negative (Negative) 10/04/22 Urine Glucose (UA) Negative (Negative) 10/04/22 Urine Ketones Negative (Negative) 10/04/22 Urine Blood Negative (Negative) 10/04/22 Urine Nitrite Negative (Negative) 10/04/22 Urine Bilirubin Negative (Negative) 10/04/22 Urine Urobilinogen Negative (Negative) 10/04/22 Urine Leukocyte Esterase Negative (Negative) 10/04/22 Blood Type O Negative 10/04/22 Antibody Screen NEGATIVE 10/04/22 Testing Electrocardiogram Date: 10/04/22 Findings: + NSR @ (68) COVID-19 Risk Screen Screening Information COVID-19 Screen Date: 10/04/22 Exposure 21 Days Family/Household +COVID Last 21 Days: No Exposure 10 Days Any COVID Exposure Last 10 Days: No Symptoms Last 10 Days Experienced COVID Sx Last 10 Days: No + COVID 0-90 Days COVID + in Last 0-90 Days: No
--- NOTE | 2022-10-04 14:30 | History & Physical Report ---
Date of Service October 04, 2022 Assessment & Plan (1) Osteoarthritis of right knee: Plan: PRE-OP Diagnosis: Right knee osteoarthritis Planned Procedure: Right total knee arthroplasty Plan: Patient is scheduled to undergo this procedure at the [facility] with a 23-hour observation admission with Dr. Rubio on October. Risks and complications of the procedure such as: Infection, bleeding, pain, scarring, nerve blood vessel damage, weakness, wound problems, stiffness, incomplete relief of symptoms, hardware failure, hardware loosening, wear, fracture, tendon or ligament injury, blood clots, Embolism, heart attack, stroke and were explained to the patient at her visit today. Informed consent to perform the procedure was obtained. Patient also understands risks of proceeding with surgical intervention during the COVID-19 pandemic. Currently she is asymptomatic and has not been in contact with anyone positive for the virus recently. Patient has an appointment to meet with anesthesia earlier this afternoon and while there will obtain CBC with differential, complete metabolic panel, PT/INR, blood type and screen, urinalysis, urine culture and sensitivity, EKG, hemoglobin A1c and a nasal culture for MRSA. Patient will also need preoperative medical clearance from their primary care provider. Patient states that she plans on doing in-home physical therapy for the first 1 to 2 weeks postoperatively with [facility] home care. Patient states that she will most likely elect to do outpatient physical therapy at [facility] [place]. Patient will need a walker, raised toilet seat, and a shower chair. During today's visit we reviewed the total hip packet as well as precautions. We discussed discharge planning from the hospital. I provided paperwork to obtain a handicap placard for their vehicle. We discussed lectures offered by [facility] in regards to joint replacement surgery via Zoom. I advised the patient that upon discharge from hospital we will prescribe a narcotic pain medication and anti-inflammatory. Patient will also be on an 81 mg aspirin twice daily for blood clot prevention. Patient will be scheduled for 2-week postoperative follow-up visit with myself on November 01. At that visit we will Provide the patient with an order for outpatient physical therapy and rehab protocol. Patient verbalizes understanding of all information provided during today's visit. She thanks for the care that she received. If she has questions or concerns that should arise prior to her surgery, she will contact clinic. This chart was completed utilizing [employer] voice recognition software. Grammatical errors, random word insertions, pronoun errors, and in complete sentences are an occasional consequence of the system. Any questions or concerns about the content, text, or information contained within the body of this dictation should be addressed directly to the physician for clarification. History of Present Illness Chief Complaint: Chief Complaint: Right knee pain Primary Care Provider: Jamal Schwartz MD History of Present Illness (including history relevant to procedure): This 67-year-old female presents the clinic today for her preoperative history and physical. Patient states that about 10 to 15 years ago she tore her medial meniscus in the right knee. She had arthroscopic surgery. She states she has had consistent pain since that surgery but states that over the past 3 years it has exacerbated significantly. She states that around gi she had an acute flareup and had great difficulty walking or driving. She localizes most of her pain to the medial joint line. She states she has had corticosteroid injections in the past, completed physical therapy and did activity modifications without relief. She was scheduled to have viscosupplementation injections, however she developed breast cancer and had to cancel the shots for treatment. Patient states that she is try to hold off on the surgery for a while but states it is starting to affect her activities of daily life. She would like to proceed with surgical intervention. Review Of Systems: A 12 point review of systems is performed and is unremarkable except for those things stated in the HPI and past medical history. 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 Mammogram - screening 07/12/2022 - Impression:No malignancy, 1 year screening recommended. Mammogram 07/11/2021 - Impression:Stable posttreatment changes in the right breast, without mammographic evidence of malignancy in either breast. A 1 year screening mammogram is recommended. Diagnostic colonoscopy 07/04/2021 - One 5 mm polyp in the mid rectum, removed with a cold biopsy forceps. Resected and retrieved. Exam otherwise normal on direct and retroflexion views. Pathology showed 1 hyperplastic polyp. Repeat in 10 years. Punch biopsy of skin 06/21/2020 Mammogram of right breast -unilateral right digital diagnostic mammogram tomosynthesis 12/18/2019 - expected postsurgical changes in the right breast, without mammographic evidence of malinancy in the right breast. no suspicious mammographic or sonographic adbnormality in the far right lateral breast in the region of tenderness pointed out by the patient. recommended bilat diagnostic tomosynthesis mammograms in 6 months to reevaluate right breast posttreatment changes and for routine mammography of the left breast Phacoemulsification 09/09/2019 - Left Eye Cataract -Left cataract phacoemulsification with intraocular lens implant Mammogram 06/18/2019 - "probably benign" DEXA - dual energy X-ray absorptiometry 02/07/2019 - 10 year probability of fractureMajor osteoporotic 8.0 %Hip 0.7% PAP test date 12/09/2018 - Negative for intraepithelial lesion or malignancy Lumpectomy of right breast 10/14/2018 Diagnostic mammogram 08/09/2018 - Pathology : Right breast. Infiltrating ductal carcinoma. Ductal carcinoma in situ, focal, without necrosis. - New biopsy marker clip status post right breast ultrasound-guided biopsy. Pathology pending. - Persistent subtle focal asymmetry in the right 6L00 breast on the additional views. A corresponding ill-defined 10 mm hypoechoic region is seen in the right 6:00 breast on ultrasound. Findings are indeterminate for malignancy and ultrasound-guided core needle biopsy is recommended for futher evaluation. - The right breast aasymmetry effaces to a baseline appearance on the additional views, without corresponding suspicious sonographic abnormality evidence. Findings are benign given long-term stability and felt to represent normal fibroglandular tissue. There is no mammographic or targeted sonographic evidence of malignancy. A one year screening mammogram is recommended. SURGICAL Pathology report 08/09/2018 - Final diagnosis:Breast Right, Ultrasound - Guided Biopsy1. Infltrating duct carcinoma. see comment2. 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 Lobular carcinoma in SITU (LCIS): not identified6 Lymphovascular invasio: Not identified7. Estrogen receptor: Positive (>90%, strong) 8. Progesterone receptor: positive (70% strong ) 9 HER2/EMILEE Overexpression: Negative 1+ (>10% weak) MRI of right knee 07/17/2018 - 1. Near complete radial tear of the posterior horn of the medial meniscus n ear the root ligament.2. Focal grade 4 medial and patellofemoral compartment chondorsis.3. Small knee joint effusion with diffuse synovitis and a ssmall hilliard's cyst. Mammogram 07/11/2018 - Right breast asymmetry, for which additional imaging evaluation is recommended. - A 5mm focal asymmetry in brianna 6 o'clock posterior right breast for which additional spot compression tomosynthesis views & possible ultrasound are recommended. - no malignancy, repeat in 1 year - The nodule in the right breast is likely represents a cyst but is indeterminate. Additional views with possible ultrasound are recommended. Colonoscopy 04/10/2016 - non-bleeding internal hemorroids. Repeat in 5 years for surveillance. tubal ligation 10/01/1987 Allergies and Sensitivities: Quibron Social history: Patient states that she has approximately 1 alcoholic beverage per month. She denies tobacco or illicit drug use. Family history: Leukemia, heart disease, stroke, cancer, diabetes and hypertension Current Home Meds: (Last Updated 10/04 11:32) PARoxetine (PARoxetine 30 mg oral tablet) 30 mg PO Daily albuterol (ProAir HFA 90 mcg/inh inhalation aerosol) 2 puff inhaled qid albuterol (albuterol 1.25 mg/3 mL (0.042%) inhalation solution) 1.25 mg NEB qid PRN: Cough amLODIPine (amLODIPine 10 mg oral tablet) TAKE 1 TABLET BY MOUTH EVERY DAY atorvastatin (atorvastatin 20 mg oral tablet) TAKE 1 TABLET BY MOUTH EVERY DAY calcium-vitamin D (Citracal + D) chondroitin-glucosamine (Last Move Free) for knee diabetes supplies (Accu-Chek FastClix Lancets) Use to check blood sugars up to three times daily. diabetes supplies (Accu-Chek FastClix Lancing Device) Check blood sugar 3 times dailyDx. E11.9 diabetes supplies (Accu-Chek Guide Test Strips) Check blood sugar 3 times dailyDx. E11.9 diabetic supplies (Accu-Chek Guide Glucose Monitor) Check blood sugar 3 times dailyDx. E11.9 famotidine (famotidine 20 mg oral tablet) TAKE 1 TABLET BY MOUTH EVERY DAY fluticasone nasal (fluticasone 50 mcg/inh nasal spray) INSTILL 1 SPRAY INTO EACH NOSTRIL DAILY FOR 21 DAYS hydroCHLOROthiazide (hydroCHLOROthiazide 25 mg oral tablet) TAKE 1 TABLET BY MOUTH EVERY DAY letrozole (letrozole 2.5 mg oral tablet) 2.5 mg PO Daily losartan (losartan 100 mg oral tablet) TAKE 1 TABLET BY MOUTH EVERY DAY metFORMIN (metFORMIN 1000 mg oral tablet) TAKE 1 TABLET BY MOUTH TWICE A DAY montelukast (montelukast 10 mg oral tablet) TAKE 1 TABLET BY MOUTH EVERY EVENING ubiquinone (Coenzyme Q10 100 mg oral capsule) 100 mg PO Daily unlisted medication ([facility] FLUTICASONE PROP 50 MCG) INSTILL 1 SPRAY INTO EACH NOSTRIL DAILY FOR 21 DAYS vitamin E Allergies Allergy/AdvReac Type Severity Reaction Status Date / Time guaifenesin [From Quibron] Allergy Mild heart Verified 09/26/22 12:54 racing, tongue fuzzy, couldn't speak theophylline [From Quibron] Allergy Mild heart Verified 09/26/22 12:54 racing, tongue fuzzy, couldn't speak chlorhexidine AdvReac Mild Rash Verified 09/26/22 12:54 Home Medications Medication Instructions Recorded Confirmed Type albuterol sulfate 90 mcg/actuation 2 puff inhalation Q6H PRN Wheezing 09/10/18 09/26/22 History aerosol inhaler amlodipine 10 mg tablet 10 mg PO QAM 09/10/18 09/26/22 History atorvastatin 20 mg tablet (Lipitor) 20 mg PO PM 09/10/18 09/26/22 History coenzyme Q10 100 mg capsule 100 mg PO QPM 09/10/18 09/26/22 History (CoQ-10) hydrochlorothiazide 12.5 mg capsule 12.5 mg PO QAM 09/10/18 09/26/22 History losartan 100 mg tablet 100 mg PO QAM 09/10/18 09/26/22 History montelukast 10 mg tablet 10 mg PO QPM 09/10/18 09/26/22 History (Singulair) paroxetine HCl 20 mg tablet (Paxil) 30 mg PO QPM 09/10/18 09/26/22 History letrozole 2.5 mg tablet 2.5 mg PO QPM 02/11/19 09/26/22 History metformin 1,000 mg tablet 1,000 mg PO BID 02/11/19 09/26/22 History vitamin E 268 mg (400 unit) capsule 400 unit PO QAM 08/21/19 09/26/22 History famotidine 20 mg tablet (Pepcid AC) 20 mg PO BID 05/11/21 09/26/22 History calcium carbonate 600 mg-vitamin 1 tab PO QAM 12/28/21 09/26/22 History D3 20 mcg (800 unit) tablet (Caltrate with Vitamin D3) fluticasone propionate 50 1 spray intranasal QAM 12/28/21 09/26/22 History mcg/actuation nasal spray,suspension (Flonase Allergy Relief) glucosam 750 mg-chondroi 100 1 tab PO QAM 12/28/21 09/26/22 History mg-hyalur 1.65 mg-CF borate 108 mg tablet (Move Free Nano Magnetics) vitamin B complex 1 cap PO QAM 09/26/22 09/26/22 History Past Med/Surg History Medical History Asthma Stable Depression Diabetes NIDDM Fatty liver GERD (gastroesophageal reflux disease) Controlled Hiatal hernia High cholesterol History of cardiac murmur as a child "resolved" HX: breast cancer Right. Dx 2017. s/p surgery/xrt RUE limb restriction Hypertension Obesity Osteoarthritis Urinary urgency Vitreous disorder Left eye vitreous detachment, + floaters Surgical History History of cataract surgery R/L History of lumpectomy of right breast RIGHT 10/2017 Hx of breast biopsy Hx of colonoscopy Hx of repair of right rotator cuff POST FALL WITH FRACTURE (2018) Hx of tubal ligation Family History Mother , 74yo; Leukemia Hypertension Father , 62yo Myocardial infarction Hypertension Heart disease Daughter Diabetes 1.5, managed as type 1 Asthma Son Testicular cancer Daughter No problems noted. Brother No problems noted. Brother No problems noted. Sister No problems noted. Grandfather (Maternal) Colorectal cancer Aunt Ovarian cancer Paternal aunt Grandfather (Paternal) Asthma Other No family history of adverse response to anesthesia No family history of bleeding disorder Denies family history of Breast cancer Social History Smoking Status: Former smoker Second Hand Exposure: No; Hx Alcohol Use: Yes Alcohol type: wine Alcohol Intake Frequency: Monthly or Less Hx Substance Use: No Preferred Language: Albanian Communication Ability: Effective Visual Impairment: No Limitations Hearing Ability: Normal Scientific Illustrator Required: No Beliefs That Will Affect Care: None marital status: Current Living Situation: Spouse current occupational status: employed and retired current occupation: Retired from [employer] in [employer] department; Feels Safe at Home: Yes caffeine: No during the past year weight has: remained stable Assistive Devices: Glasses Review of Systems All systems reviewed & are unremarkable except as noted in Subjective Physical Exam Physical Exam: Physical Exam: (relevant to the procedure, including heart and lung evaluation) General: Alert and oriented x3 proper grooming and hygiene Eyes: Pupils are equal and reactive to light with accommodation. Extraocular movements are intact Throat: Posterior oropharynx is clear with absence of edema, erythema or exudate. Dentition is appropriate Cardiac: Regular rate and rhythm no murmurs or gallops appreciated Lungs: Clear to auscultation throughout with no wheezing, rales or rhonchi Abdomen: Mildly obese, nondistended, nontender with NABS Extremities: Right knee; range of motion is from 0 degrees of extension to 112 d egrees of flexion. Patient experiences medial and lateral joint tenderness when knee is palpated in flexed position. Her patella is not mobile due to arthritic change within the patellofemoral joint. She is neurovascular intact right lower extremity. Neuro: Cranial nerves II through XII are intact no motor or sensory deficit Skin: Normal in appearance no open skin areas or discharge Results & Data ([facility]) Diagnostic Findings Studies (relevant to the procedure): X-rays done include 3 views of the right knee. These are compared with her prior films. She has near [id number] arthritis in the medial aspect of the right knee. Tricompartmental osteophyte formation is noted.
[2022-10-19] MEDS ORDERED: traMADol HCL 50 MG TABLET PO SCH (06:00)
[2022-10-19] MEDS ORDERED: FAMOTIDINE 20 MG TAB PO SCH (06:00)
[2022-10-19] MEDS ORDERED: ROPIVACAINE 0.5% HCL/PF 150 MG, BUPIVACAINE 0.75% MPF 20 ML, EPINEPHrine 0.15 MG, Ketor... INFIL SCH (06:00)
[2022-10-19] MEDS ORDERED: ACETAMINOPHEN 500 MG TAB PO SCH (06:00)
[2022-10-19] MEDS ORDERED: ceFAZolin 2000MG 2,000 MG/15 ML SYR IV SCH (06:00)
[2022-10-19] MEDS ORDERED: TRANEXAMIC ACID 1,000 MG **IV Intra-op IV SCH (06:00)
[2022-10-19] MEDS ORDERED: LR 500ML BOLUS, THEN 15ML/HR IV SCH (06:00)
[2022-10-19] MEDS ORDERED: CeleBREX 200 MG CAP PO SCH (06:00)
[2022-10-19] MEDS ORDERED: TRANEXAMIC ACID 1,000 MG **IV Pre-op IV SCH (06:00)
[2022-10-19] MEDS ORDERED: LR 60ML/HR IV SCH (06:00)
[2022-10-19] MEDS ORDERED: Scopolamine 1 MG TDSY TD SCH (06:00)
[2022-10-19] MEDS ORDERED: BUPIVACAINE 0.5 % 5 MG/1 ML PF 10ML VIAL ONE (06:22)
[2022-10-19] MEDS ORDERED: ROPIVACAINE 0.5% 5 MG/ML 30 ML VIAL ONE (06:22)
[2022-10-19] MEDS ORDERED: ORTHO JOINT ANESTHETIC ONE (06:31)
[2022-10-19] MEDS ORDERED: ONDANSETRON INJ 2 MG/ML 2 ML VIAL IV PRN ×2 (06:39→08:53)
[2022-10-19] MEDS ORDERED: ATROPINE SULFATE 0.1 MG/ML 10ML SYR IV PRN (06:39)
[2022-10-19] MEDS ORDERED: ePHEDrine sulfate 50 MG/ML AMP IV PRN (06:39)
[2022-10-19] MEDS ORDERED: fentaNYL citrate 100 MCG/2 ML VIAL IV PRN (06:39)
--- NOTE | 2022-10-19 06:42 | History & Physical Bridge Note ---
Date of Service October 19, 2022 History & Physical Bridge Note I have examined the patient, reviewed the History & Physical and in the interval since the performance of the History & Physical I have noted the following changes of clinical significance: no changes noted
[2022-10-19] MEDS ORDERED: fentaNYL citrate 100 MCG/2 ML VIAL ONE (06:46)
[2022-10-19] MEDS ORDERED: MIDAZOLAM HCL 1 MG/ML 2ML VIAL ONE (06:46)
[2022-10-19] MEDS ORDERED: PROPOFOL IV EMULSION 10 MG/ML 20 ML VIAL IV ONE (06:49)
[2022-10-19] MEDS ORDERED: LIDOCAINE 2% MPF LOCAL 5 ML VIAL INFIL ONE (06:49)
[2022-10-19] MEDS ORDERED: ONDANSETRON INJ 2 MG/ML 2 ML VIAL ONE (06:49)
[2022-10-19] MEDS ORDERED: GLYCOPYRROLATE 0.2 MG/ML VIAL ONE (07:23)
[2022-10-19] MEDS ORDERED: KETAMINE 50 MG/5 ML SYRINGE ONE (07:23)
--- NOTE | 2022-10-19 08:47 | Operative Report ---
Post Operative Report Pre & Post Diagnosis Operation Date: 10/19/22 07:00 Pre-Op Diagnosis: Osteoarthritis Right Knee Post-Op Diagnosis: Osteoarthritis Right Knee I identified the patient and participated in the time-out.: Yes Procedure Operation Date: 10/19/22 07:00 Actual Procedures p Right Total Knee Arthroplasty, Cemented(Right) - Fredrick Rubio MD Surgeon Fredrick Rubio MD Degree Clerk LINDSAY Brunson PA-C. No resident or fellow was available to assist. Estimated Blood Loss 50 Findings Consistent with Post-Op Diagnosis Specimens Bone and soft tissue contents from the right knee Anesthesia Type Spinal MAC Complications none Disposition Disposition: Recovery Room Indications 67-year-old female with right knee osteoarthritis refractory to conservative management. X-rays demonstrate joint space narrowing and subchondral sclerosis. I had a long discussion with her about the risks and benefits of surgery, alternatives to surgery, and expected outcomes. After reviewing all these she elected to proceed with surgery. All questions were answered. Informed consent was signed. Description of Procedure Patient was identified in the preoperative holding area where the surgical site, right knee, was marked. Patient was brought back to the operating room, placed on the operating room table, and IV sedation was administered. A bump was placed underneath the ipsilateral hip. All bony prominences were padded. Perioperative antibiotics and tranexamic acid were administered. Exam under anesthesia was performed. This demonstrated a stable ligamentous exam and range of motion from 0 to 120 degrees. The surgical site was prepped and draped in the normal sterile fashion. Prior to incision a multidisciplinary timeout was called. All in the room were in agreement. We began by exsanguinating the limb with an Esmarch bandage. Tourniquet was inflated to 250 mmHg. A 14 cm long incision was made over the anterior aspect of the knee. I dissected through the subcutaneous tissues to the level of the fascia. Full-thickness flaps were raised above the fascia. A median parapatellar arthrotomy was made. Half the fat pad was excised. A medial release was performed with Bovie electrocautery on the proximal tibia. Synovitis in the knee and suprapatellar pouch was removed. The patella was then everted and held with 2 towel clips. The thickness of the patella was measured at 24 mm. Patellar resection was performed. Caliper showed the patella thickness now to be 14 mm. A size 38 trial was placed and had a great fit. The 3 drill holes were placed then the trial button was placed. The patellar thickness was now 24 mm which I was very happy with. The patellar trial was then removed, the patella was everted and the knee was flexed up. Osteophytes were removed from the femoral condyles and intercondylar notch. The ACL and PCL were excised. Intramedullary drill guide was drilled into the femur. Distal femoral cutting guide was placed set at 5 degrees of valgus to resect 9 mm off the distal femur. Distal femoral resection was made without difficulty. The tibia was then exposed. The lateral meniscus was sharply excised. The tibial cutting jig was positioned to resect 9 mm off the less involved compartment. The jig was then pinned in position and the tibial cut was made. We then brought the knee into full extension. Lamina spreaders were placed. The medial meniscus was excised. The extension block was then placed for 5 mm thickness poly. This gave us full extension and excellent stability to varus and valgus. Next the knee was flexed up and the femoral sizing guide was placed. The patient sized to a size 6 femur. The 3 degree external rotation jig was used to create 2 holes in the distal femur. The jig was removed and the holes were compared to Whitesides axis and the epicondylar axis. We were happy with the rotation, and therefore placed the appropriately sized 4-in-1 cutting jig and pinned this into position. Our 4 cuts were made. The cutting jig was removed. The flexion block was then placed with the knee held at 90 degrees. There was excellent stability to varus and valgus at 90 degrees with no gapping medially or laterally. Next the box cutting jig was placed on the distal femur. The box cut was made and the femoral trial was impacted into position. Lug holes were drilled in the distal femur. We then reexposed the tibia. The tibia was sized to a 5 for a fixed bearing component. The tibial tray with a 5 mm thickness polyethylene liner was placed on the cut tibial surface and the knee was brought through a full range of motion. There was excellent stability to varus valgus stress throughout a full range of motion, which was approximately 0-120 degrees. Bovie electrocautery was used to chantell the tibia at the site where the tibial tray rested in full extension. We then flexed up the knee, remove the polyethylene liner, and pinned the tibial tray into position. The intramedullary drill followed by the keel punch were used to prepare the tibia. Next the trial components were removed. I then injected the posterior capsule and periosteum with the periarticular injection cocktail. The bone cuts were then irrigated and dried while the cement was mixed on the back table. The femoral component was cemented on first. Excess cement was removed. A lap sponge was placed over the femoral component for protection, then the tibia was subluxated anteriorly. The all polyethylene tibial component was then cemented in place. Again excess cement was removed. The knee was brought into full extension and held there until the cement cured. The patella was cemented and clamped. Dilute Betadine solution was then allowed to irrigate the knee while the cement cured. Once the cement was fully cured, the tourniquet was let down and meticulous hemostasis was ensured. The wound was irrigated out with copious amounts normal saline. The knee was brought through a full range of motion and we were very happy with the patella tracking and the stability. We then began to close. Interrupted 0 Vicryl suture was used to repair the patellar retinaculum in [id number] fashion. The quadriceps and patellar tendons were run with #1 Vicryl. The deep dermal layer was closed with interrupted 2-0 Vicryl. Dermabond and Zipline was used for the skin, followed by a Silverlon dressing. A compressive Benjamin wrap was placed and the knee was placed into a knee immobilizer. Patient's sedation was lifted and was transferred to recovery room in stable condition. Summary of implants: Depuy Attune Posterior Stabilized Cemented Femur, size 6 narrow Attune All-polyethylene tibial component, posterior stabilized 5 mm thickness, size 5 Attune patella medialized dome, size 38 2 batches of simplex high viscosity bone cement Postoperative course: Patient will be admitted to the floor for pain control and monitoring. Weightbearing as tolerated with a walker with no knee range of motion for 48 hours. Aspirin for DVT prophylaxis. I attest to the content of the Intraoperative Record and any orders documented therein. Any exceptions are noted below.
[2022-10-19] MEDS ORDERED: METOCLOPRAMIDE HCL INJ 5 MG/ML 2 ML VIAL IV PRN (08:53)
[2022-10-19] MEDS ORDERED: HYDROmorphone INJ 0.5 MG/0.5 ML SYR IV PRN (08:53)
[2022-10-19] MEDS ORDERED: diphenhydrAMINE 50 MG/ML VIAL IV PRN (08:53)
[2022-10-19] MEDS ORDERED: NALOXONE HCL 0.4 MG/1 ML VIAL/CARP IV PRN (08:53)
[2022-10-19] MEDS ORDERED: bisacodyL 10 MG SUPP PR PRN (08:53)
[2022-10-19] MEDS ORDERED: ALUMINUM/MAGNESIUM SUSP 30 ML UDC PO PRN (08:53)
[2022-10-19] MEDS ORDERED: oxyCODONE HCL IR 5 MG TAB (IMMEDIATE RELEASE) PO PRN (08:53)
[2022-10-19] MEDS ORDERED: MAGNESIUM HYDROXIDE SUSP 30 ML UDC PO PRN (08:53)
--- NOTE | 2022-10-19 08:53 | Operative Report ---
Post Operative Report Pre & Post Diagnosis Operation Date: 10/19/22 07:00 Pre-Op Diagnosis: Osteoarthritis Right Knee Post-Op Diagnosis: Osteoarthritis Right Knee I identified the patient and participated in the time-out.: Yes Procedure Operation Date: 10/19/22 07:00 Actual Procedures p Right Total Knee Arthroplasty, Cemented(Right) - Fredrick Rubio MD Surgeon Fredrick Rubio MD Dean Of [employer] Services LINDSAY Brunson PA-C. No resident or fellow was available to assist. Estimated Blood Loss 50 Findings Consistent with Post-Op Diagnosis Specimens none Description of Procedure I was present during the entire case assisting with positioning, prepping, draping, wound retraction, wound closure, dressing and immobilizer placement. No fellow present. Please see Dr. Rubio procedure note for specifics of the case. I attest to the content of the Intraoperative Record and any orders documented therein. Any exceptions are noted below.
[2022-10-19] MEDS ORDERED: ALBUTEROL HFA 8 GM INHALER INH PRN (08:56)
[2022-10-19] MEDS ORDERED: NON-FORMULARY MEDICATION (Glucosam-Chond-Hyalu-Cf Borate [Move Free Joint Health] 750 mg-1 PO SCH (09:00)
--- NOTE | 2022-10-19 09:28 | XRay Report ---
XR knee RT 1 or 2V routine HISTORY: 67 years-old Female Surgical Post Op right knee total joint arthroplasty COMPARISON: October 04, 2022 TECHNIQUE: 2 views the right knee FINDINGS: Arthroplasty changes with patellar resurfacing. Expected postoperative soft tissue swelling with deep tissue air. No acute fracture, unexpected opaque foreign body or malalignment. IMPRESSION: Expected postoperative changes of the right knee. ACT 112: Negative or not required by law. The above report was generated using voice recognition software. It may contain grammatical, syntax o r spelling errors. Electronically signed by: Griffin Woodard M.D. 10/19/2022 9:27 AM
--- NOTE | 2022-10-19 09:56 | Anesthesiology Progress Note ---
Date of Service October 19, 2022 Anesthesia Post Procedure Vital Signs Vital Signs: Temp Pulse Pulse Resp BP Pulse Ox O2 Del Method 10/19/22 09:35 61 18 139/67 97 Room Air 10/19/22 09:25 64 20 135/76 94 Room Air 10/19/22 09:15 63 16 132/69 96 Room Air 10/19/22 08:53 97.5 F L 73 20 132/71 100 Oxymask 10/19/22 09:05 71 18 142/92 H 100 Oxymask 10/19/22 05:48 98.6 F 67 18 166/87 H 96 Room Air O2 Flow Rate 10/19/22 09:35 10/19/22 09:25 10/19/22 09:15 10/19/22 08:53 6 10/19/22 09:05 10/19/22 05:48 Pain Intensity Right Knee: Pain Intensity: 0 Transfer of Care Handoff Completed per policy Notes Mental Status: alert / awake / arousable and participated in evaluation Patient Amnestic to Procedure: Yes Nausea / Vomiting: adequately controlled Pain: adequately controlled Airway Patency, RR, SpO2: stable & adequate BP & HR: stable & adequate Hydration State: stable & adequate Neuraxial Anesthesia: was administered and sensory block is resolving Anesthetic Complications: no major complications apparent and Pt Satisfied with anesthetic care
[2022-10-19] MEDS: SODIUM CHLORIDE 0.9% 1000ML 1,000 ML IV SCH ×2 (11:11→21:43)
[2022-10-19] MEDS: TOCOPHERYL, DL-ALPHA 400 UNITS 180 MG CAP PO SCH (11:14)
[2022-10-19] MEDS: VITAMIN B COMPLEX TAB PO SCH (11:14)
[2022-10-19] MEDS: KETOROLAC TROMETHAMINE 15 MG/ML VIAL IV SCH ×3 (11:16→22:39)
[2022-10-19] MEDS: LOSARTAN POTASSIUM 50 MG TAB PO SCH (12:50)
[2022-10-19] MEDS: ASPIRIN 81 MG ECTAB PO SCH ×2 (12:50→19:57)
[2022-10-19] MEDS: POTASSIUM CHLORIDE 10 MEQ TABCR PO SCH ×2 (12:50→19:57)
[2022-10-19] MEDS: CALCIUM 600MG + VIT D 400 IU TAB PO SCH (12:51)
[2022-10-19] MEDS: MULTIVITAMIN TAB PO SCH (12:51)
[2022-10-19] MEDS: hydroCHLOROthiazide 25 MG TAB PO SCH (12:51)
[2022-10-19] MEDS: DOCUSATE SODIUM 100 MG CAP PO SCH ×2 (12:54→19:56)
[2022-10-19] MEDS: ACETAMINOPHEN 500 MG TAB PO SCH ×2 (13:45→22:36)
[2022-10-19] MEDS ORDERED: TRANEXAMIC ACID / 0.7% NACL 1,000 MG/100 ML BAG IV SCH (15:00)
[2022-10-19] MEDS: ceFAZolin 2000MG 2,000 MG/15 ML SYR IV SCH ×2 (15:47→22:38)
[2022-10-19] MEDS: Scopolamine CHECK PATCH PLACEMENT SCH ×2 (15:55→23:48)
[2022-10-19] MEDS ORDERED: COUGH DROP (SUGAR FREE) LOZ 24 LOZ/1 BOX BUCCAL ONE (16:01)
[2022-10-19] MEDS: metFORMIN HCL 500 MG TAB PO SCH (17:39)
[2022-10-19] MEDS: FAMOTIDINE 20 MG TAB PO SCH (19:58)
[2022-10-19] MEDS ORDERED: NON-FORMULARY MEDICATION (Coenzyme Q10 [Coq-10] 100 mg Capsule) PO SCH (21:00)
[2022-10-19] MEDS ORDERED: MONTELUKAST SODIUM 10 MG TABLET PO SCH (21:00)
[2022-10-19] MEDS ORDERED: SENNA 8.6 MG TAB PO SCH (21:00)
[2022-10-19] MEDS ORDERED: PARoxetine HCL 10 MG TAB PO SCH (21:00)
[2022-10-19] MEDS ORDERED: LETROZOLE 2.5 MG TAB PO SCH (21:00)
[2022-10-19] MEDS ORDERED: ATORVASTATIN 20 MG TAB PO SCH (21:00)
[2022-10-20 04:33] VITALS: O2SAT 94
[2022-10-20] MEDS: KETOROLAC TROMETHAMINE 15 MG/ML VIAL IV SCH (05:51)
[2022-10-20] MEDS: ACETAMINOPHEN 500 MG TAB PO SCH (05:51)
[2022-10-20 06:26] LABS: Hematocrit (blood only) 33.1 % (34.1-44.9); Hemoglobin 10.8 g/dl (12.0-16.0); Mean Corpuscular Hemoglobin 27.2 pg (25.0-34.0); Mean Corpuscular Hgb Conc 32.6 g/dL (32.0-36.0); Mean Corpuscular Volume 83.4 fL (80.0-100.0); Mean Platelet Volume 10.1 fL (9.4-12.3); Platelet Count 244 K/uL (130-400); RDW Coefficient of Variation 14.2 % (11.5-14.5); RDW Standard Deviation 43.4 fL (36.4-46.3); Red Blood Count 3.97 M/uL (3.93-5.22); White Blood Count 10.75 K/ul (4.8-10.8)
[2022-10-20 06:59] LABS: Calcium 8.8 mg/dl (8.5-10.1)
[2022-10-20 07:05] LABS: Creatinine Clr Calc Pharmacy 53.5 ml/min; Est GFR (African American) 62.8 ml/min; Est GFR (Non-African American) 54.1 ml/min
[2022-10-20] MEDS: hydroCHLOROthiazide 25 MG TAB PO SCH (08:08)
[2022-10-20] MEDS: Scopolamine CHECK PATCH PLACEMENT SCH (08:08)
[2022-10-20] MEDS: metFORMIN HCL 500 MG TAB PO SCH (08:09)
[2022-10-20] MEDS: POTASSIUM CHLORIDE 10 MEQ TABCR PO SCH (08:10)
[2022-10-20] MEDS: CALCIUM 600MG + VIT D 400 IU TAB PO SCH (08:10)
[2022-10-20] MEDS: ASPIRIN 81 MG ECTAB PO SCH (08:11)
[2022-10-20] MEDS: DOCUSATE SODIUM 100 MG CAP PO SCH (08:12)
[2022-10-20] MEDS: VITAMIN B COMPLEX TAB PO SCH (08:13)
[2022-10-20] MEDS: TOCOPHERYL, DL-ALPHA 400 UNITS 180 MG CAP PO SCH (08:13)
[2022-10-20] MEDS: LOSARTAN POTASSIUM 50 MG TAB PO SCH (08:14)
[2022-10-20] MEDS: MULTIVITAMIN TAB PO SCH (08:14)
[2022-10-20] MEDS: FAMOTIDINE 20 MG TAB PO SCH (08:14)
[2022-10-20] MEDS ORDERED: FLUTICASONE PROPIONATE NA SPR 16 GM BTL NAE SCH (09:00)
[2022-10-20] MEDS ORDERED: amLODIPine BESYLATE 5 MG TAB PO SCH (09:00)
--- NOTE | 2022-10-20 09:07 | Orthopedic Progress Note ---
Date of Service October 20, 2022 Assessment & Plan (1) S/P total knee arthroplasty: Plan: Weightbearing as tolerated with walker assistance and immobilizer for the first 48 hours postoperatively. PT/OT Ice with easy wrap Pain control with p.o. medication DVT prophylaxis with MOISES stockings and aspirin Keep Silverlon dressing in place Plan is to discharge home later today with in-home physical therapy for the first 2 weeks postoperatively. Follow-up with [facility] orthopedics as previously scheduled With questions contact our clinic at [phone] Admission and Anticipated Discharge Date Admission Date: October 19, 2022 Subjective This 67-year-old female is day 1 status post right total knee arthroplasty. Patient states that she is doing very well. She states that her pain is very minimal at this point. She states that she has been able to ambulate to the bathroom several times without difficulty. She is very anxious to be discharged home later today. Currently she denies chest pain, shortness of breath, fever, chills, sweats, nausea, vomiting or any numbness or tingling in her right lower extremity. Review of Systems Review of Systems: All systems reviewed & are unremarkable except as noted in Subjective Physical Exam Physical Exam: Right knee: Outer dressing was removed from the patient's right lower extremity. Silverlon is clean dry and in place. Patient is able to actively flex to about 55 degrees. She is able to perform an active straight leg raise test. She is able to actively dorsi and plantarflex her foot. Her calf is soft and supple nontender to palpation. Quad strength is 3+ out of 5. Patient's peripheral pulses are 2+. Her capillary fill is less than 2 seconds. She is neurovascularly intact in the right lower extremity. Results & Data ([facility]) Vital Signs (Past 12 Hours) Vital Signs Temp Pulse Resp BP Pulse Ox O2 Del Method 10/20/22 08:05 150/74 H 10/20/22 07:10 36.6 C 62 19 133/77 94 Room Air 10/20/22 04:32 36.5 C 60 18 164/70 H 94 Room Air 10/19/22 22:55 37 C 62 16 131/70 96 Room Air Diagnostic Findings Laboratory Results WBC 10.75 K/ul (4.8-10.8) 10/20/22 05:38 RBC 3.97 M/uL (3.93-5.22) 10/20/22 05:38 Hgb 10.8 g/dl (12.0-16.0) L 10/20/22 05:38 Hct 33.1 % (34.1-44.9) L 10/20/22 05:38 MCV 83.4 fL (80.0-100.0) 10/20/22 05:38 MCH 27.2 pg (25.0-34.0) 10/20/22 05:38 MCHC 32.6 g/dL (32.0-36.0) 10/20/22 05:38 RDW Std Deviation 43.4 fL (36.4-46.3) 10/20/22 05:38 RDW Coeff of Bonifacio 14.2 % (11.5-14.5) 10/20/22 05:38 Plt Count 244 K/uL (130-400) 10/20/22 05:38 MPV 10.1 fL (9.4-12.3) 10/20/22 05:38 Sodium 138 mmol/L (136-145) 10/20/22 05:38 Potassium 4.0 mmol/L (3.5-5.1) 10/20/22 05:38 Chloride 106 mmol/L (98-107) 10/20/22 05:38 Carbon Dioxide 25 mmol/L (21-32) 10/20/22 05:38 Anion Gap 7 (3-11) 10/20/22 05:38 BUN 22 mg/dl (6-23) 10/20/22 05:38 Creatinine 1.05 mg/dl (0.6-1.2) 10/20/22 05:38 Est Cr Clr Drug Dosing 53.5 ml/min 10/20/22 05:38 Est GFR ( Amer) 62.8 ml/min 10/20/22 05:38 Est GFR (Non-Af Amer) 54.1 ml/min 10/20/22 05:38 BUN/Creatinine Ratio 21.0 (10-20) H 10/20/22 05:38 Glucose 132 mg/dl (70-99(Fasting)) H 10/20/22 05:38 POC Glucose 121 mg/dl (70-99) H 10/20/22 08:01 Calcium 8.8 mg/dl (8.5-10.1) 10/20/22 05:38 SARS-CoV-2, RNA, NAAT NEGATIVE (NEGATIVE) 10/19/22 Unknown Impressions Knee X-Ray 10/19/22 08:55 XR knee RT 1 or 2V routine HISTORY: 67 years-old Female Surgical Post Op right knee total joint arthroplasty COMPARISON: October 04, 2022 TECHNIQUE: 2 views the right knee FINDINGS: Arthroplasty changes with patellar resurfacing. Expected postoperative soft tissue swelling with deep tissue air. No acute fracture, unexpected opaque foreign body or malalignment. IMPRESSION: Expected postoperative changes of the right knee. ACT 112: Negative or not required by law. The above report was generated using voice recognition software. It may contain grammatical, syntax or spelling errors. Electronically signed by: Griffin Woodard M.D. 10/19/2022 9:27 AM
--- NOTE | 2022-10-20 09:14 | Discharge Summary ---
Date of Service October 20, 2022 Admission HPI Per Admitting Provider History of Present Illness (including history relevant to procedure): This 67-year-old female presents the clinic today for her preoperative history and physical. Patient states that about 10 to 15 years ago she tore her medial meniscus in the right knee. She had arthroscopic surgery. She states she has had consistent pain since that surgery but states that over the past 3 years it has exacerbated significantly. She states that around [place] she had an acute flareup and had great difficulty walking or driving. She localizes most of her pain to the medial joint line. She states she has had corticosteroid injections in the past, completed physical therapy and did activity modifications without relief. She was scheduled to have viscosupplementation injections, however she developed breast cancer and had to cancel the shots for treatment. Patient states that she is try to hold off on the surgery for a while but states it is starting to affect her activities of daily life. She would like to proceed with surgical intervention. Review Of Systems: A 12 point review of systems is performed and is unremarkable except for those things stated in the HPI and past medical history. 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 Mammogram - screening 07/12/2022 - Impression:No malignancy, 1 year screening recommended. Mammogram 07/11/2021 - Impression:Stable posttreatment changes in the right breast, without mammographic evidence of malignancy in either breast. A 1 year screening mammogram is recommended. Diagnostic colonoscopy 07/04/2021 - One 5 mm polyp in the mid rectum, removed with a cold biopsy forceps. Resected and retrieved. Exam otherwise normal on direct and retroflexion views. Pathology showed 1 hyperplastic polyp. Repeat in 10 years. Punch biopsy of skin 06/21/2020 Mammogram of right breast -unilateral right digital diagnostic mammogram tomosynthesis 12/18/2019 - expected postsurgical changes in the right breast, without mammographic evidence of malinancy in the right breast. no suspicious mammographic or sonographic adbnormality in the far right lateral breast in the region of tenderness pointed out by the patient. recommended bilat diagnostic tomosynthesis mammograms in 6 months to reevaluate right breast posttreatment changes and for routine mammography of the left breast Phacoemulsification 09/09/2019 - Left Eye Cataract -Left cataract phacoemulsification with intraocular lens implant Mammogram 06/18/2019 - "probably benign" DEXA - dual energy X-ray absorptiometry 02/07/2019 - 10 year probability of fractureMajor osteoporotic 8.0 %Hip 0.7% PAP test date 12/09/2018 - Negative for intraepithelial lesion or malignancy Lumpectomy of right breast 10/14/2018 Diagnostic mammogram 08/09/2018 - Pathology : Right breast. Infiltrating ductal carcinoma. Ductal carcinoma in situ, focal, without necrosis. - New biopsy marker clip status post right breast ultrasound-guided biopsy. Pathology pending. - Persistent subtle focal asymmetry in the right 6L00 breast on the additional views. A corresponding ill-defined 10 mm hypoechoic region is seen in the right 6:00 breast on ultrasound. Findings are indeterminate for malignancy and ultrasound-guided core needle biopsy is recommended for futher evaluation. - The right breast aasymmetry effaces to a baseline appearance on the additional views, without corresponding suspicious sonographic abnormality evidence. Findings are benign given long-term stability and felt to represent normal fibroglandular tissue. There is no mammographic or targeted sonographic evidence of malignancy. A one year screening mammogram is recommended. SURGICAL Pathology report 08/09/2018 - Final diagnosis:Breast Right, Ultrasound - Guided Biopsy1. Infltrating duct carcinoma. see comment2. 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 Lobular carcinoma in SITU (LCIS): not identified6 Lymphovascular invasio: Not identified7. Estrogen receptor: Positive (>90%, strong) 8. Progesterone receptor: positive (70% strong ) 9 HER2/EMILEE Overexpression: Negative 1+ (>10% weak) MRI of right knee 07/17/2018 - 1. Near complete radial tear of the posterior horn of the medial meniscus near the root ligament.2. Focal grade 4 medial and patellofemoral compartment chondorsis.3. Small knee joint effusion with diffuse synovitis and a ssmall hilliard's cyst. Mammogram 07/11/2018 - Right breast asymmetry, for which additional imaging evaluation is recommended. - A 5mm focal asymmetry in brianna 6 o'clock posterior right breast for which additional spot compression tomosynthesis views & possible ultrasound are recommended. - no malignancy, repeat in 1 year - The nodule in the right breast is likely represents a cyst but is indeterminate. Additional views with possible ultrasound are recommended. Colonoscopy 04/10/2016 - non-bleeding internal hemorroids. Repeat in 5 years for surveillance. tubal ligation 10/01/1987 Allergies and Sensitivities: Quibron Social history: Patient states that she has approximately 1 alcoholic beverage per month. She denies tobacco or illicit drug use. Family history: Leukemia, heart disease, stroke, cancer, diabetes and hypertension Current Home Meds: (Last Updated 10/04 11:32) PARoxetine (PARoxetine 30 mg oral tablet) 30 mg PO Daily albuterol (ProAir HFA 90 mcg/inh inhalation aerosol) 2 puff inhaled qid albuterol (albuterol 1.25 mg/3 mL (0.042%) inhalation solution) 1.25 mg NEB qid PRN: Cough amLODIPine (amLODIPine 10 mg oral tablet) TAKE 1 TABLET BY MOUTH EVERY DAY atorvastatin (atorvastatin 20 mg oral tablet) TAKE 1 TABLET BY MOUTH EVERY DAY calcium-vitamin D (Citracal + D) chondroitin-glucosamine (Last Move Free) for knee diabetes supplies (Accu-Chek FastClix Lancets) Use to check blood sugars up to three times daily. diabetes supplies (Accu-Chek FastClix Lancing Device) Check blood sugar 3 times dailyDx. E11.9 diabetes supplies (Accu-Chek Guide Test Strips) Check blood sugar 3 times dailyDx. E11.9 diabetic supplies (Accu-Chek Guide Glucose Monitor) Check blood sugar 3 times dailyDx. E11.9 famotidine (famotidine 20 mg oral tablet) TAKE 1 TABLET BY MOUTH EVERY DAY fluticasone nasal (fluticasone 50 mcg/inh nasal spray) INSTILL 1 SPRAY INTO EACH NOSTRIL DAILY FOR 21 DAYS hydroCHLOROthiazide (hydroCHLOROthiazide 25 mg oral tablet) TAKE 1 TABLET BY MOUTH EVERY DAY letrozole (letrozole 2.5 mg oral tablet) 2.5 mg PO Daily losartan (losartan 100 mg oral tablet) TAKE 1 TABLET BY MOUTH EVERY DAY metFORMIN (metFORMIN 1000 mg oral tablet) TAKE 1 TABLET BY MOUTH TWICE A DAY montelukast (montelukast 10 mg oral tablet) TAKE 1 TABLET BY MOUTH EVERY EVENING ubiquinone (Coenzyme Q10 100 mg oral capsule) 100 mg PO Daily unlisted medication ([facility] FLUTICASONE PROP 50 MCG) INSTILL 1 SPRAY INTO EACH NOSTRIL DAILY FOR 21 DAYS vitamin E Admission Exam Per Admitting Provider Physical Exam: (relevant to the procedure, including heart and lung evaluation) General: Alert and oriented x3 proper grooming and hygiene Eyes: Pupils are equal and reactive to light with accommodation. Extraocular movements are intact Throat: Posterior oropharynx is clear with absence of edema, erythema or exudate. Dentition is appropriate Cardiac: Regular rate and rhythm no murmurs or gallops appreciated Lungs: Clear to auscultation throughout with no wheezing, rales or rhonchi Abdomen: Mildly obese, nondistended, nontender with NABS Extremities: Right knee; range of motion is from 0 degrees of extension to 112 degrees of flexion. Patient experiences medial and lateral joint tenderness when knee is palpated in flexed position. Her patella is not mobile due to arthritic change within the patellofemoral joint. She is neurovascular intact right lower extremity. Neuro: Cranial nerves II through XII are intact no motor or sensory deficit Skin: Normal in appearance no open skin areas or discharge Principal Diagnosis Right knee osteoarthritis Discharge Exam Right knee: Outer dressing was removed from the patient's right lower extremity. Silverlon is clean dry and in place. Patient is able to actively flex to about 55 degrees. She is able to perform an active straight leg raise test. She is able to actively dorsi and plantarflex her foot. Her calf is soft and supple nontender to palpation. Quad strength is 3+ out of 5. Patient's peripheral pulses are 2+. Her capillary fill is less than 2 seconds. She is neurovascularly intact in the right lower extremity. Discharge Data Allergies Allergy/AdvReac Type Severity Reaction Status Date / Time chlorhexidine Allergy Mild Rash Verified 10/19/22 05:43 guaifenesin [From Quibron] Allergy Mild heart Verified 09/26/22 12:54 racing, tongue fuzzy, couldn't speak theophylline [From Quibron] Allergy Mild heart Verified 09/26/22 12:54 racing, tongue fuzzy, couldn't speak Procedures Performed Operation Date: 10/19/22 07:00 Actual Procedures p Right Total Knee Arthroplasty, Cemented(Right) - Fredrick Rubio MD Ordered Studies 10/19/22 05:00 US - OR guided needle placemen Routine Hospital Course (1) S/P total knee arthroplasty: Patient had an uneventful overnight stay following right total knee arthroplasty. She is very pleased with the results of her surgery. She is very eager to be discharged home later today. She is set up with in-home physical therapy for the first 2 weeks postoperatively. Weightbearing as tolerated with walker assistance and immobilizer for the first 48 hours postoperatively. PT/OT Ice with easy wrap Pain control with p.o. medication DVT prophylaxis with MOISES stockings and aspirin Keep Silverlon dressing in place Plan is to discharge home later today with in-home physical therapy for the first 2 weeks postoperatively. Follow-up with [facility] orthopedics as previously scheduled With questions contact our clinic at [phone] Total Time Total Time Spent Total Time Spent (In Minutes): 15 mins Discharge Plan Discharge Items Patient Disposition: Home - Home Health Services Reason For Visit: Osteoarthritis Total Knee Right Discharge Diagnosis: Right knee osteoarthritis Activity: As commented below Lifting: None Bathing: Keep incision dry Bathing Comment: may shower tomorrow Sexual Activity: Wait until after follow-up appointment Exercise/Sports: Wait until after follow-up appointment Driving/Machine Use: No driving until cleared by windows technical specialist Weightbearing Comment: as tolerated with walker assistance Non-emergency contact: Surgeon Call non-emergency contact if: you have any medication questions, your pain is not controlled, your temperature is above 101.5, your wound has increased christ inage and your wound pain has increased Follow-up/Referrals: Jamal Schwartz MD [Primary Care Provider] - Diet: Carb Consistent or DM2 Addtl Attending Provider Instructions: Post-operative Instructions Dear Patient and Family/Friends, Before you are discharged from the hospital, it is important to know what to expect when you get home after surgery. To that end, we have created this sheet of discharge instructions which covers many commonly asked questions. Make sure you go through this sheet in its entirety with your nurse before you are discharged. Please note that we will go over the specifics of your surgery and recovery when you return for your first post-operative visit. Sincerely, Dr. Rubio Medications 1. Oxycodone 5 mg: take 1-2 tabs every 4-6 hours as needed for pain relief. A prescription for this medication will be sent to your pharmacy. 2. Diclofenac Sodium 75 mg: take 1 tab twice daily for 30 days post operatively for pain and inflammation relief. This will also be sent to your pharmacy with 1 refill. 3. Aspirin 81 mg: take 1 tab twice daily for 30 days post operatively for blood clot prevention. Please purchase. 4. Extra Strength Tylenol 500mg: take 2 tabs every 6-8 hours as needed for additional pain relief. Please purchase. Pain Expect to be in a fair amount of pain after surgery. Remember, our goal is not to eliminate your pain, but to make it tolerable. It is a good idea to stay ahead of your pain by taking the medications you were prescribed once you get home. Typically, the pain starts improving 3-7 days after surgery. You should start weaning off the narcotic pain medication (oxycodone, hydrocodone, hydromo rphone, morphine) as soon as your pain improves. Please call our office if your pain is not adequately controlled. Ice Ice your operative site at least 5 times a day for 15-30 minutes at a time. Make sure you have a thin cloth between the ice or cooling unit and your skin to prevent murphy bite. This is especially important if you received a nerve block. Continue icing your operative site for the first 5-7 days after surgery, then as needed. Diet/Nausea/Vomiting Start by drinking clear liquids and eating crackers. If you can tolerate this, then you may resume your normal diet. If you feel nauseated or vomit, take Zofran/ondansetron (if prescribed). Please call our office if you have intractable nausea or vomiting, or, if after hours, you may go to the Emergency Room for help. Constipation Constipation is a common side effect of narcotic pain medication. If you have not had a bowel movement within 2 days after surgery, we recommend purchasing an over the counter laxative such as Milk of Magnesia, Dulcolax, or Miralax from a local pharmacy, and taking it as instructed. Call our clinic if any questions. Slings and Braces If you were placed in a sling or brace, it must be worn at all times, including sleep. You may remove your sling or brace for physical therapy, home exercises, and showering. The length of time you will be in your brace and range of motion restrictions depends on what surgery you had; these details will be reviewed at your first post-operative appointment. Nerve block The anesthesia team sometimes places a nerve block to help with post-operative pain control. This results in significant numbness and inability to move the extremity. The nerve block usually wears off in 8-12 hours, but sometimes can last up to 24 hours. Please call our office if you are still unable to move your extremity after 24 hours, unless you received a pain pump to take home. Nerve blocks typically wear off quickly, so start taking pain medication as soon as you start feeling soreness near your surgical site. Weight bearing and Range of Motion. Do not bear any weight through your operative extremity immediately after surgery. If you had upper extremity surgery, do not lift anything with that arm. If you are in a knee brace, keep it locked in place until your follow-up. We will discuss your weight bearing, range of motion, and lifting restrictions in detail at your first post-operative appointment. Continuous Passive Motion (CPM) Machine If you were prescribed a CPM machine, it will start after your first post- operative appointment, at which time we will give you instructions on the range of motion settings and duration of treatment Physical therapy You will be given a prescription for physical therapy or occupational therapy at your first post-operative appointment. Typically, patients start therapy within 1 week of surgery Wound care and showering We will inspect your wound at your first post-operative visit, and may do a dressing change at that time. Most patients will be in a water-proof dressing that is removed 14 days after surgery. It is normal to see some dried blood on the dressing. Do not remove your dressing, paper strips or sutures yourself unless you are given permission. Showering is allowed the day after surgery. Do not scrub or remove any dressings. The wound should not be submerged underwater (i.e. in a bathtub or pool) until 4 weeks after surgery MOISES stockings If you were given white stockings, these are to be worn at all times except to shower (on both legs) for the first 2 weeks after surgery. Driving You may not drive while taking narcotic pain medication or while in a cast, splint, sling or brace. You, the patient, need to make the final determination about when you are safe to drive, however, the earliest you may consider driving after surgery is below: Hand/Wrist/Elbow Surgery: 3 days Shoulder Surgery: 2 weeks Hip,/Knee/Ankle Surgery: 4 weeks Fracture repair: 6 weeks Return to Work Your return to work depends on what surgery was done and what type of work you do. Please bring any paperwork your employer needs completed to your first post-operative visit. Also, bring a description of your job duties, as this helps us to understand what risks you may face at work. Travel Avoid long distance travel (greater than 1 hour) in airplanes and cars for the first 6 weeks after surgery. If you must travel, you need to have a Doppler ultrasound done before you travel to rule out a blood clot in your legs. Follow-up You should have a follow-up appointment already scheduled 1-2 days after s urgery. If not, please contact our office to make this appointment before you leave the hospital. When to call the office It is normal to have swelling and bruising in the limb that was operated on. This will improve with time. It is also normal to have fevers for the first 2 days after surgery. Reasons you should call your doctor include: Uncontrolled pain; Nausea, vomiting, or constipation that does not improve with medication; Fevers over 101.5, chills, sweats; Drainage or bleeding from the wound; Foul odor; Spreading areas of redness; Any other concerns Pending Studies at Discharge: No Stand-Alone Forms: [facility], Pain - Opioid Pain Management Medications and DC Order Prescriptions: New acetaminophen [Tylenol Extra Strength] 500 mg Tablet 1,000 mg PO Q8 30 Days Qty: 180 0RF aspirin 81 mg Tablet,Delayed Release (Dr/Ec) 81 mg PO BID 30 Days Qty: 60 0RF oxycodone 5 mg Tablet 5 - 10 mg PO Q4H PRN (Reason: Postoperative pain control) Qty: 28 0RF diclofenac sodium 75 mg tablet,delayed release (DR/EC) 75 mg PO BID 30 Days Qty: 60 1RF Continued letrozole 2.5 mg tablet 2.5 mg PO QPM calcium carbonate-vitamin D3 [Caltrate with Vitamin D3] 600 mg-20 mcg (800 unit) tablet 1 tab PO QAM fluticasone propionate [Flonase Allergy Relief] 50 mcg/actuation spray,suspension 1 spray intranasal QAM Rx Instructions: administer into each nostril Move Free Joint Health 750 mg-100 mg- 1.65 mg-108 mg tablet 1 tab PO QAM famotidine [Pepcid AC] 20 mg tablet 20 mg PO BID atorvastatin [Lipitor] 20 mg Tablet 20 mg PO PM amlodipine 10 mg Tablet 10 mg PO QAM paroxetine HCl [Paxil] 20 mg Tablet 30 mg PO QPM hydrochlorothiazide 12.5 mg Capsule 12.5 mg PO QAM montelukast [Singulair] 10 mg Tablet 10 mg PO QPM losartan 100 mg Tablet 100 mg PO QAM coenzyme Q10 [CoQ-10] 100 mg Capsule 100 mg PO QPM albuterol sulfate 90 mcg/actuation Hfa Aerosol Inhaler 2 puff INHALATION Q6H PRN (Reason: Wheezing) Label Comments: maybe use once a yr metformin 1,000 mg tablet 1,000 mg PO BID vitamin E 400 unit Capsule 400 unit PO QAM vitamin B complex Capsule 1 cap PO QAM potassium chloride 8 mEq Tablet Extended Release 8 meq PO BID Admission Data Admit Date/Time: 10/19/22 08:53 Attending Provider: Fredrick Rubio Admit Provider: Fredrick Rubio Primary Care Provider: Jamal Schwartz
[2022-10-20] MEDS ORDERED: CeleBREX 200 MG CAP PO SCH (11:00)
[2022-10-20 11:26] VITALS: BP 136/69; PULSE 58; TEMP 98.4
== END 2022-10-20 13:46 | disposition home health service (06) ==
LOC: 3E 05:25 → ASU 05:25